=== PATIENT | male | born 1945 | race Caucasian/White ===

== ENCOUNTER → 2016-04-30 | Outpatient (CLI) | payer MEDICARE ==
[2016-04-30 15:28] LABS: PROTHROMBIN TIME 29.1 SEC (11.4-15.4)
== END ==
LOC: OD 14:56
PROVIDERS: ATTEND Internal Medicine Advanced Heart Failure and Transplant Cardiology
DX: I50.9 Heart failure, unspecified (principal); Z79.01 Long term (current) use of anticoagulants; Z95.811 Presence of heart assist device
CPT/HCPCS: 36415; 85610

== ENCOUNTER → 2016-05-14 | Outpatient (CLI) | payer MEDICARE ==
[2016-05-14 12:48] LABS: PROTHROMBIN TIME 33.6 SEC (11.4-15.4)
== END ==
LOC: OD 12:09
PROVIDERS: ATTEND Internal Medicine Advanced Heart Failure and Transplant Cardiology
DX: I50.9 Heart failure, unspecified (principal); Z79.01 Long term (current) use of anticoagulants; Z95.811 Presence of heart assist device
CPT/HCPCS: 36415; 85610

== ENCOUNTER → 2016-06-15 | Outpatient (CLI) | payer MEDICARE ==
[2016-06-15 13:19] LABS: PROTHROMBIN TIME 22.2 SEC (11.4-15.4)
== END ==
LOC: OD 12:28
PROVIDERS: ATTEND Internal Medicine Advanced Heart Failure and Transplant Cardiology
DX: I50.9 Heart failure, unspecified (principal); Z79.01 Long term (current) use of anticoagulants; Z95.811 Presence of heart assist device
CPT/HCPCS: 36415; 85610

== ENCOUNTER → 2016-06-22 | Outpatient (CLI) | payer MEDICARE ==
[2016-06-22 13:08] LABS: PROTHROMBIN TIME 27.5 SEC (11.4-15.4)
== END ==
LOC: OD 12:17
PROVIDERS: ATTEND Internal Medicine Advanced Heart Failure and Transplant Cardiology
DX: I50.9 Heart failure, unspecified (principal); Z79.01 Long term (current) use of anticoagulants; Z95.811 Presence of heart assist device
CPT/HCPCS: 36415; 85610

== ENCOUNTER → 2016-07-15 | Outpatient (CLI) | payer MEDICARE ==
[2016-07-15 15:20] LABS: PROTHROMBIN TIME 22.3 SEC (11.4-15.4)
== END ==
LOC: OD 14:02
PROVIDERS: ATTEND Internal Medicine Advanced Heart Failure and Transplant Cardiology
DX: I50.9 Heart failure, unspecified (principal); Z79.01 Long term (current) use of anticoagulants; Z95.811 Presence of heart assist device
CPT/HCPCS: 36415; 85610

== ENCOUNTER → 2016-08-14 | Outpatient (CLI) | payer MEDICARE ==
[2016-08-14 10:39] LABS: HEMATOCRIT 43.5 % (37.9-51.0); HGB HCT DIFFERENCE 1.5; MEAN CORPUSCULAR HEMOGLOBIN 31.2 pg (27.0-33.4); MEAN CORPUSCULAR HGB CONC 34.5 g/dL (32.0-36.0); MEAN CORPUSCULAR VOLUME 90 fl (80-97); RED BLOOD COUNT 4.82 10^6/uL (4.35-5.55); RED CELL DISTRIBUTION WIDTH 14.8 % (11.5-14.0); WHITE BLOOD COUNT 5.6 10^3/uL (4.0-10.5)
[2016-08-14 10:40] LABS: PROTHROMBIN TIME 13.9 SEC (11.4-15.4)
[2016-08-14 10:51] LABS: ANION GAP 13 (5-19); BLOOD UREA NITROGEN 26 mg/dL (7-20); CALCIUM 9.6 mg/dL (8.4-10.2); CARBON DIOXIDE 27 mmol/L (22-30); CHLORIDE 102 mmol/L (98-107); CREATININE RESULT 1.07 mg/dL (0.52-1.25); GLUCOSE 159 mg/dL (75-110); POTASSIUM 3.7 mmol/L (3.6-5.0); SODIUM 141.5 mmol/L (137-145)
== END ==
LOC: OD 09:35
PROVIDERS: ATTEND Internal Medicine Advanced Heart Failure and Transplant Cardiology
DX: I50.9 Heart failure, unspecified (principal); Z79.01 Long term (current) use of anticoagulants; Z95.811 Presence of heart assist device
CPT/HCPCS: 36415; 80048; 85027; 85610

== ENCOUNTER → 2016-08-19 | Outpatient (CLI) | payer MEDICARE ==
[2016-08-19 12:17] LABS: PROTHROMBIN TIME 19.8 SEC (11.4-15.4)
== END ==
LOC: OD 11:23
PROVIDERS: ATTEND Internal Medicine Advanced Heart Failure and Transplant Cardiology
DX: I50.9 Heart failure, unspecified (principal); Z79.01 Long term (current) use of anticoagulants; Z95.811 Presence of heart assist device
CPT/HCPCS: 36415; 85610

== ENCOUNTER → 2016-08-27 | Outpatient (CLI) | payer MEDICARE ==
[2016-08-27 11:41] LABS: PROTHROMBIN TIME 23.5 SEC (11.4-15.4)
[2016-08-27 11:49] LABS: ANION GAP 14 (5-19); BLOOD UREA NITROGEN 18 mg/dL (7-20); CALCIUM 9.5 mg/dL (8.4-10.2); CARBON DIOXIDE 26 mmol/L (22-30); CHLORIDE 103 mmol/L (98-107); GLUCOSE 138 mg/dL (75-110); POTASSIUM 3.6 mmol/L (3.6-5.0); SODIUM 142.5 mmol/L (137-145)
== END ==
LOC: OD 11:00
PROVIDERS: ATTEND Internal Medicine Advanced Heart Failure and Transplant Cardiology
DX: I50.9 Heart failure, unspecified (principal); Z79.01 Long term (current) use of anticoagulants; Z95.811 Presence of heart assist device
CPT/HCPCS: 36415; 80048; 85610

== ENCOUNTER → 2016-09-30 | Outpatient (CLI) | payer MEDICARE ==
[2016-09-30 13:04] LABS: PROTHROMBIN TIME 48.2 SEC (11.4-15.4)
[2016-09-30 13:13] LABS: ALANINE AMINOTRANSFERASE 29 U/L (21-72); ALBUMIN 3.8 g/dL (3.5-5.0); ALKALINE PHOSPHATASE 72 U/L (38-126); ANION GAP 10 (5-19); ASPARTATE AMINO TRANSFERASE 31 U/L (17-59); BILIRUBIN,DIRECT 0.4 mg/dL (0.0-0.4); BILIRUBIN,TOTAL 0.8 mg/dL (0.2-1.3); BLOOD UREA NITROGEN 24 mg/dL (7-20); CALCIUM 9.7 mg/dL (8.4-10.2); CARBON DIOXIDE 27 mmol/L (22-30); CHLORIDE 104 mmol/L (98-107); CREATININE RESULT 1.03 mg/dL (0.52-1.25); GLUCOSE 104 mg/dL (75-110); LDH 692 U/L (313-618); POTASSIUM 3.6 mmol/L (3.6-5.0); SODIUM 140.8 mmol/L (137-145); TOTAL PROTEIN 6.8 g/dL (6.3-8.2)
== END ==
LOC: OD 12:27
PROVIDERS: ATTEND Internal Medicine Advanced Heart Failure and Transplant Cardiology
DX: I50.9 Heart failure, unspecified (principal); Z79.01 Long term (current) use of anticoagulants; Z95.811 Presence of heart assist device
CPT/HCPCS: 36415; 80053; 83615; 85610

== ENCOUNTER → 2016-10-05 | Outpatient (CLI) | payer MEDICARE ==
[2016-10-05 12:20] LABS: HEMATOCRIT 40.8 % (37.9-51.0); HEMOGLOBIN 13.5 g/dL (13.5-17.0); HGB HCT DIFFERENCE -0.3; MEAN CORPUSCULAR HEMOGLOBIN 30.2 pg (27.0-33.4); MEAN CORPUSCULAR VOLUME 92 fl (80-97); RED BLOOD COUNT 4.47 10^6/uL (4.35-5.55); WHITE BLOOD COUNT 6.1 10^3/uL (4.0-10.5)
[2016-10-05 12:25] LABS: PROTHROMBIN TIME 29.3 SEC (11.4-15.4)
== END ==
LOC: OD 11:30
PROVIDERS: ATTEND Internal Medicine Advanced Heart Failure and Transplant Cardiology
DX: I50.9 Heart failure, unspecified (principal); Z79.01 Long term (current) use of anticoagulants; Z95.811 Presence of heart assist device
CPT/HCPCS: 36415; 85027; 85610

== ENCOUNTER → 2016-10-06 | Outpatient (CLI) | payer MEDICARE ==
--- NOTE | 2016-10-07 09:19 | RADIOLOGY REPORT (SQ) ---
EXAM DESCRIPTION: CT LT LOWER EXTREMITY WITHOUT COMPLETED DATE/TIME: 10/06/2016 3:17 pm REASON FOR STUDY: L FOOT PAIN M79.672 PAIN IN LEFT FOOT COMPARISON: None. TECHNIQUE: Axial imaging performed through the left foot with reformatted coronal and sagittal imagi ng windowed for bone and soft tissues. Images saved to PACS. 3D IMAGING: Were 3D images as MIP, SSD, or volume rendering performed at the work station? Yes All CT scanners at this facility use dose modulation, iterative reconstruction, and/or weight based d osing when appropriate to reduce radiation dose to as low as reasonably achievable (ALARA). [facility]: Dose Right [facility]: CareDose [facility]: Dose Right [facility]: Teradose 4D [facility]: [employer] LIMITATIONS: None. RADIATION DOSE: Up-to-date CT equipment and radiation dose reduction techniques were employed. CTDIv ol: 4.6 mGy. DLP: 125 mGy-cm. mGy. FINDINGS: SOFT TISSUES: Limited assessment with CT. Generalized subcutaneous edema about the ankle extending out over the dorsal foot. No evidence of foreign body or drainable collection, however. BONES: Prominent well corticated accessory navicular. No overt talar dome lesion. No overt fracture . No subluxation or dislocation. No evidence of ankylosis. No aggressive erosions or cysts or bulk y osteophytes. MINERALIZATION: Mild osteopenia. OTHER: No other significant finding. IMPRESSION: Soft tissue swelling. Otherwise, fairly unremarkable CT of the left foot, findings as a jim. TECHNICAL DOCUMENTATION: JOB ID: [id number] Quality ID # [id number]: Final reports with documentation of one or more dose reduction techniques (e.g., Au tomated exposure control, adjustment of the mA and/or kV according to patient size, use of iterative reconstruction technique) 2010 [employer]- All Rights Reserved
== END ==
LOC: RAD 15:01
PROVIDERS: ATTEND Physician Assistant
DX: M79.672 Pain in left foot (principal)

== ENCOUNTER → 2016-10-13 | Outpatient (CLI) | payer MEDICARE | LOC: OD 11:25 | PROVIDERS: ATTEND Internal Medicine Advanced Heart Failure and Transplant Cardiology | DX: I50.9 Heart failure, unspecified (principal); Z79.01 Long term (current) use of anticoagulants; Z95.811 Presence of heart assist device | CPT/HCPCS: 36415; 85610 ==

== ENCOUNTER → 2016-10-28 | Outpatient (CLI) | payer MEDICARE ==
[2016-10-28 13:22] LABS: PROTHROMBIN TIME 16.9 SEC (11.4-15.4)
== END ==
LOC: OD 12:23
PROVIDERS: ATTEND Internal Medicine Advanced Heart Failure and Transplant Cardiology
DX: I50.9 Heart failure, unspecified (principal); Z79.01 Long term (current) use of anticoagulants; Z95.811 Presence of heart assist device
CPT/HCPCS: 36415; 85610

== ENCOUNTER → 2016-11-04 | Outpatient (CLI) | payer MEDICARE ==
[2016-11-04 12:22] LABS: PROTHROMBIN TIME 21.4 SEC (11.4-15.4)
[2016-11-04 12:25] LABS: HEMOGLOBIN 13.7 g/dL (13.5-17.0); HGB HCT DIFFERENCE -0.9; MEAN CORPUSCULAR HGB CONC 32.6 g/dL (32.0-36.0); MEAN CORPUSCULAR VOLUME 92 fl (80-97); RED BLOOD COUNT 4.57 10^6/uL (4.35-5.55); RED CELL DISTRIBUTION WIDTH 15.1 % (11.5-14.0); WHITE BLOOD COUNT 6.2 10^3/uL (4.0-10.5)
[2016-11-04 12:40] LABS: ANION GAP 9 (5-19); BLOOD UREA NITROGEN 25 mg/dL (7-20); CALCIUM 9.2 mg/dL (8.4-10.2); CARBON DIOXIDE 25 mmol/L (22-30); CHLORIDE 105 mmol/L (98-107); CREATININE RESULT 1.03 mg/dL (0.52-1.25); GLUCOSE 138 mg/dL (75-110); POTASSIUM 4.5 mmol/L (3.6-5.0); SODIUM 139.4 mmol/L (137-145)
== END ==
LOC: OD 11:28
PROVIDERS: ATTEND Internal Medicine Advanced Heart Failure and Transplant Cardiology
DX: I50.9 Heart failure, unspecified (principal); Z79.01 Long term (current) use of anticoagulants; Z95.811 Presence of heart assist device
CPT/HCPCS: 36415; 80048; 85027; 85610

== ENCOUNTER → 2016-11-25 | Outpatient (CLI) | payer MEDICARE ==
[2016-11-25 12:16] LABS: PROTHROMBIN TIME 28.4 SEC (11.4-15.4)
[2016-11-25 12:33] LABS: ANION GAP 15 (5-19); BLOOD UREA NITROGEN 25 mg/dL (7-20); CALCIUM 9.4 mg/dL (8.4-10.2); CARBON DIOXIDE 22 mmol/L (22-30); CHLORIDE 102 mmol/L (98-107); CREATININE RESULT 0.93 mg/dL (0.52-1.25); GLUCOSE 149 mg/dL (75-110); POTASSIUM 4.2 mmol/L (3.6-5.0); SODIUM 138.8 mmol/L (137-145)
== END ==
LOC: OD 11:28
PROVIDERS: ATTEND Internal Medicine Advanced Heart Failure and Transplant Cardiology
DX: I50.9 Heart failure, unspecified (principal); Z79.01 Long term (current) use of anticoagulants; Z95.811 Presence of heart assist device
CPT/HCPCS: 36415; 80048; 85610

== ENCOUNTER → 2016-12-30 | Outpatient (CLI) | payer MEDICARE ==
[2016-12-30 11:39] LABS: PROTHROMBIN TIME 24.4 SEC (11.4-15.4)
== END ==
LOC: OD 11:16
PROVIDERS: ATTEND Internal Medicine Advanced Heart Failure and Transplant Cardiology
DX: I50.9 Heart failure, unspecified (principal); Z79.01 Long term (current) use of anticoagulants; Z95.811 Presence of heart assist device
CPT/HCPCS: 36415; 85610

== ENCOUNTER → 2017-01-13 | Outpatient (CLI) | payer MEDICARE ==
[2017-01-13 10:37] LABS: PROTHROMBIN TIME 21.8 SEC (11.4-15.4)
[2017-01-13 10:44] LABS: ANION GAP 12 (5-19); BLOOD UREA NITROGEN 18 mg/dL (7-20); CALCIUM 9.3 mg/dL (8.4-10.2); CARBON DIOXIDE 26 mmol/L (22-30); CHLORIDE 102 mmol/L (98-107); CREATININE RESULT 0.94 mg/dL (0.52-1.25); GLUCOSE 170 mg/dL (75-110); POTASSIUM 3.4 mmol/L (3.6-5.0); SODIUM 140.4 mmol/L (137-145)
== END ==
LOC: OD 09:46
PROVIDERS: ATTEND Internal Medicine Advanced Heart Failure and Transplant Cardiology
DX: I50.9 Heart failure, unspecified (principal); Z79.01 Long term (current) use of anticoagulants; Z95.811 Presence of heart assist device
CPT/HCPCS: 36415; 80048; 85610

== ENCOUNTER 2017-01-27 10:53 | Emergency (ER) | payer MEDICARE ==
[2017-01-27] MEDS ORDERED: NORMAL SALINE 1000 ML 500 ML IV PRN (11:08)
[2017-01-27] MEDS ORDERED: ONDANSETRON HCL INJ/PF 4 MG/2 ML SDV IV ONE (11:08)
[2017-01-27] MEDS ORDERED: HYDROMORPHONE HCL INJ/PF 2 MG/ML AMPULE IV ONE (11:08)
--- NOTE | 2017-01-27 11:09 | ER Document Report ---
ED Medical Screen (RME) - General Chief Complaint: Flank Pain Stated Complaint: FLANK PAIN Time Seen by Provider: 01/27/17 11:08 Mode of Arrival: Wheelchair Information source: Patient TRAVEL OUTSIDE OF THE [place] IN LAST 30 DAYS: No - HPI Patient complains to provider of: Left flank pain Notes: 01/27/17 11:09 Patient is a 71-year-old male with multiple medical problems including previous kidney stones, currently has LVAD in place, presenting to the emergency room complaining of left-sided flank pain that started yesterday afternoon, is similar to previous kidney stones in the past, he has required procedures to have kidney stones removed in the past - Related Data Allergies/Adverse Reactions: prazosin [Prazosin] Adverse Reaction (Verified 01/27/17 10:59) Heart Palpitations Past Medical History - Past Medical History Cardiac Medical History: Reports: Hx Atrial Fibrillation, Hx Congestive Heart Failure, Hx Coronary Artery Disease, Hx Heart Attack - 01/2012, Hx Hypercholesterolemia, Hx Hypertension Pulmonary Medical History: Reports: Hx Pneumonia Denies: Hx Tuberculosis Renal/ Medical History: Reports: Hx Kidney Stones. Denies: Hx Peritoneal Dialysis Musculoskeltal Medical History: Reports Hx Arthritis Psychiatric Medical History: Denies: Hx Depression Past Surgical History: Reports: Hx Cardiac Catheterization, Hx Cardiac Surgery, Hx Coronary Stent, Hx Internal Defibrillator, Hx Orthopedic Surgery - bilateral hips, left knee, Hx Pacemaker - 2004, Other - LVAD - Immunizations Hx Diphtheria, Pertussis, Tetanus Vaccination: Yes Physical Exam - Vital signs Vitals: Temp Pulse Resp BP Pulse Ox 97.9 F 97 22 H 145/109 H 98 01/27/17 10:59 01/27/17 10:59 01/27/17 10:59 01/27/17 10:59 01/27/17 10:59 Course - Vital Signs Vital signs: Temp Pulse Resp BP Pulse Ox 97.9 F 97 22 H 145/109 H 98 01/27/17 10:59 01/27/17 10:59 01/27/17 10:59 01/27/17 10:59 01/27/17 10:59
[2017-01-27 11:58] LABS: ABSOLUTE LYMPHOCYTES (AUTO) 0.8 10^3/uL (0.5-4.7); ABSOLUTE MONOCYTES (AUTO) 0.6 10^3/uL (0.1-1.4); ABSOLUTE NEUT (AUTO) 6.5 10^3/uL (1.7-8.2); BASOPHILS % (AUTO) 0.5 % (0-2); EOSINOPHILS % (AUTO) 0.5 % (0-6); HEMATOCRIT 44.3 % (37.9-51.0); HEMOGLOBIN 15.2 g/dL (13.5-17.0); HGB HCT DIFFERENCE 1.3; LYMPHOCYTES % (AUTO) 10.5 % (13-45); MEAN CORPUSCULAR HEMOGLOBIN 31.4 pg (27.0-33.4); MEAN CORPUSCULAR HGB CONC 34.4 g/dL (32.0-36.0); MEAN CORPUSCULAR VOLUME 91 fl (80-97); RED BLOOD COUNT 4.86 10^6/uL (4.35-5.55); RED CELL DISTRIBUTION WIDTH 15.6 % (11.5-14.0); SEGMENTED NEUTROPHILS % (AUTO) 81.5 % (42-78)
[2017-01-27 12:23] LABS: APPEARANCE,URINE CLEAR; BILIRUBIN,URINE NEGATIVE (NEGATIVE); GLUCOSE, URINE NEGATIVE (NEGATIVE); KETONES,URINE NEGATIVE (NEGATIVE); LEUKOCYTE ESTERASE,URINE NEGATIVE (NEGATIVE); NITRITE,URINE NEGATIVE (NEGATIVE); PROTEIN,URINE >=500 mg/dL (NEGATIVE); URINE SPECIFIC GRAVITY 1.026
[2017-01-27 12:24] LABS: ALANINE AMINOTRANSFERASE 37 U/L (21-72); ALBUMIN 4.2 g/dL (3.5-5.0); ALKALINE PHOSPHATASE 69 U/L (38-126); ANION GAP 12 (5-19); ASPARTATE AMINO TRANSFERASE 40 U/L (17-59); BILIRUBIN,DIRECT 0.5 mg/dL (0.0-0.4); BILIRUBIN,TOTAL 1.3 mg/dL (0.2-1.3); BLOOD UREA NITROGEN 18 mg/dL (7-20); CALCIUM 9.9 mg/dL (8.4-10.2); CARBON DIOXIDE 26 mmol/L (22-30); CHLORIDE 100 mmol/L (98-107); CREATININE RESULT 1.02 mg/dL (0.52-1.25); GLUCOSE 142 mg/dL (75-110); LIPASE 118.7 U/L (23-300); POTASSIUM 3.4 mmol/L (3.6-5.0); SODIUM 137.6 mmol/L (137-145); TOTAL PROTEIN 7.1 g/dL (6.3-8.2)
--- NOTE | 2017-01-27 12:33 | ER Document Report ---
ED General - General Chief Complaint: Flank Pain Stated Complaint: FLANK PAIN Time Seen by Provider: 01/27/17 11:08 Mode of Arrival: Wheelchair Notes: 71-year-old male with history of kidney stones presented with left flank pain since yesterday, constant, intermittently associated with vomiting, similar to prior kidney stones. No fever no dysuria no hematuria. Patient has constant shortness of breath unchanged from prior and has an LVAD in place but is not currently on a transplant list. Denies chest pain. TRAVEL OUTSIDE OF THE [place] IN LAST 30 DAYS: No - Related Data Allergies/Adverse Reactions: prazosin [Prazosin] Adverse Reaction (Verified 01/27/17 10:59) Heart Palpitations Past Medical History - General Information source: Patient - Social History Smoking Status: Never Smoker Chew tobacco use (# tins/day): No Frequency of alcohol use: Social Drug Abuse: None Family History: Reviewed & Not Pertinent - Past Medical History Cardiac Medical History: Reports: Hx Atrial Fibrillation, Hx Congestive Heart Failure, Hx Coronary Artery Disease, Hx Heart Attack - 01/2012, Hx Hypercholesterolemia, Hx Hypertension Pulmonary Medical History: Reports: Hx Pneumonia Denies: Hx Tuberculosis Renal/ Medical History: Reports: Hx Kidney Stones. Denies: Hx Peritoneal Dialysis Musculoskeltal Medical History: Reports Hx Arthritis Psychiatric Medical History: Denies: Hx Depression Past Surgical History: Reports: Hx Cardiac Catheterization, Hx Cardiac Surgery, Hx Coronary Stent, Hx Internal Defibrillator, Hx Orthopedic Surgery - bilateral hips, left knee, Hx Pacemaker - 2004, Other - LVAD - Immunizations Hx Diphtheria, Pertussis, Tetanus Vaccination: Yes Hx Pneumococcal Vaccination: 01/22/12 Review of Systems - Review of Systems Notes: REVIEW OF SYSTEMS GEN: Denies fever, chills, weight loss ENT: Denies sore throat, nasal discharge, ear pain EYES: Denies blurry vision, eye pain, discharge CV: Denies chest pain, palpitations, edema RESP: Denies cough, positive shortness of breath, denies wheezing GI: Denies abdominal pain, nausea, vomiting, diarrhea MSK: D left back flank pain, SKIN: Denies rash, skin lesions LYMPH: Denies swollen glands/lymph nodes NEURO: Denies headache, focal weakness or numbness, dizziness PSYCH: Denies depression, suicidal or homicidal ideation PHYSICAL EXAMINATION General: No acute distress, well-nourished Head: Atraumatic, normocephalic ENT: Mouth normal, oropharynx moist, no exudates or tonsillar enlargement Eyes: Conjunctiva normal, pupils equal, lids normal Neck: No JVD, supple, no guarding CVS: Intermittent pulse secondary to LVAD, fluttering sound over precordium Resp: No resp distress, equal and normal breath sounds bilaterally GI: Nondistended, soft, no tenderness to palpation, no rebound or guarding Ext: No deformities, chronic discoloration and edema, bilateral lower extremities, normal range of motion in upper and lower ext Back: N left CVA tenderness Skin: No rash, warm Lymphatic: No lymphadeopathy noted Neuro: Awake, alert. Face symmetric. GCS 15. Physical Exam - Vital signs Vitals: Temp Pulse Resp BP Pulse Ox 97.9 F 97 22 H 145/109 H 98 01/27/17 10:59 01/27/17 10:59 01/27/17 10:59 01/27/17 10:59 01/27/17 10:59 Course - Re-evaluation Re-evalutation: 01/27/17 12:33 Patient with heart failure and LVAD presents with recurrent left flank pain similar to prior kidney stones. Normal vital signs, expected exam given LVAD. Mild left CVA tenderness. Urinalysis and labs are pending. Patient states that fentanyl and morphine to work for him so Dilaudid has been ordered by triage provider. He states he has had an ultrasound but I do not see that has been done so we will get a noncontrast CT to assess position and size of stone. Inferiorly, aortic pathology is on the differential here however given the similar to prior stones I will start with a Noncon scan. 01/27/17 14:03 Reassess patient at 2 PM. He appears more comfortable but states that the Dilaudid did not work. His laboratory testing is unremarkable and his CAT scan does not show signs of nephrolithiasis. On further history, his now says that this all began Wednesday with vomiting after he ate chicken soup which was out all night. He continued to vomit throughout Wednesday and then dry heaves Wednesday and Wednesday. He is having frequent runny bowel movements as well but that is now subsided. He specifically denies chest pain. Given this, he may have a poor muscle or spasm but I think that the story matches well with with food poisoning and associated muscle strain given his tenderness. I will give him some Flexeril and Zofran he will be discharged with the same and he was warned to follow-up with Dr. Miramontes as soon as possible or with the ED if anything changes or gets any worse in any way. I have discussed with the patient there likely diagnosis, aftercare plan, follow-up plans and my usual and customary return precautions. They verbalized understanding of this. - Vital Signs Vital signs: Temp Pulse Resp BP Pulse Ox 97.9 F 97 22 H 145/109 H 98 01/27/17 10:59 01/27/17 10:59 01/27/17 10:59 01/27/17 10:59 01/27/17 10:59 - Laboratory Result Diagrams: 01/27/17 11:35 01/27/17 11:35 Laboratory results interpreted by me: 01/27/17 01/27/17 01/27/17 11:21 11:35 11:35 RDW 15.6 H Seg Neutrophils % 81.5 H Lymphocytes % 10.5 L Potassium 3.4 L Glucose 142 H Direct Bilirubin 0.5 H Urine Protein >=500 H Urine Blood SMALL H Urine Urobilinogen 2.0 H - Diagnostic Test Radiology reviewed: Reports reviewed Discharge - Discharge Clinical Impression: Back pain Qualifiers: Back pain location: low back pain Chronicity: acute Back pain laterality: left Sciatica presence: without sciatica Qualified Code(s): M54.5 - Low back pain Condition: Good Disposition: HOME, SELF-CARE Instructions: Low Back Pain ([facility]) Additional Instructions: As we discussed we did not find evidence of a kidney stone. It may be that you have passed a stone or that you have some back spasm because of the vomiting. We did not find any acute issues in her abdomen either. Please follow-up with your regular doctor within a few days, ideally by Wednesday. Please return to the ER before that if the meds are not working or get worse in any way. Prescriptions: Cyclobenzaprine HCl [Flexeril 10 mg Tablet] 10 mg PO TIDP PRN #15 tab PRN Reason: Ondansetron HCl [Zofran 4 mg Tablet] 1 - 2 tab PO Q4H PRN #10 tablet PRN Reason: Referrals: MARIAH MIRAMONTES MD [Primary Care Provider] - Follow up as needed
--- NOTE | 2017-01-27 12:37 | RADIOLOGY REPORT (SQ) ---
EXAM DESCRIPTION: U/S RETROPERITON LTD COMPLETED DATE/TIME: 01/27/2017 12:24 pm REASON FOR STUDY: left flank pain COMPARISON: CT abdomen pelvis 06/17/2010 KUB 07/27/2013 TECHNIQUE: Dynamic and static grayscale images acquired of the kidneys and bladder and recorded on P ACS. Additional selected color Doppler and spectral images recorded. LIMITATIONS: Limited acoustic window FINDINGS: RIGHT KIDNEY: Normal size, 11.2 cm in length. Normal echogenicity. No solid or suspic ious masses. No hydronephrosis. No calcifications. LEFT KIDNEY: Normal size, 11.8 cm in length. Normal echogenicity. No solid or suspicious masses. No hydronephrosis. No calcifications. BLADDER: Patient emptied the bladder prior to the exam. Nondiagnostic imaging of the urinary bladder . OTHER FINDINGS: No other significant finding. IMPRESSION: No hydronephrosis. No gross intrarenal stones. TECHNICAL DOCUMENTATION: JOB ID: [id number] [employer]- All Rights Reserved
--- NOTE | 2017-01-27 13:23 | RADIOLOGY REPORT (SQ) ---
EXAM DESCRIPTION: CT ABD/PELVIS NO ORAL OR IV COMPLETED DATE/TIME: 01/27/2017 1:04 pm REASON FOR STUDY: stone L COMPARISON: 2010. TECHNIQUE: CT scan of the abdomen and pelvis performed without intravenous or oral contrast. Images reviewed with lung, soft tissue, and bone windows. Reconstructed coronal and sagittal MPR images revi ewed. All images stored on PACS. All CT scanners at this facility use dose modulation, iterative reconstruction, and/or weight based d osing when appropriate to reduce radiation dose to as low as reasonably achievable (ALARA). [facility]: Dose Right [facility]: CareDose [facility]: Dose Right [facility]: Teradose 4D [facility]: [employer] RADIATION DOSE: Up-to-date CT equipment and radiation dose reduction techniques were employed. CTDIv ol: 18.6 mGy. DLP: 989 mGy-cm.mGy. LIMITATIONS: Artifact related to bilateral hip replacements obscures the pelvis. This precludes marcela luation of the inferior bladder and adjacent tissues. Streak artifact through the lower chest and up per abdomen is related to ventricular assist device. FINDINGS: LOWER CHEST: Cardiac enlargement. Clear lung bases. Left ventricular assist device in pl danna. Distal aspect of pacing wires also noted. No pericardial effusion. NON-CONTRASTED LIVER, SPLEEN, ADRENALS: No gross lesions in the liver or spleen. No evidence of adre nal mass. PANCREAS: Grossly normal. Mild limiting artifact. GALLBLADDER: No identified stones by CT criteria. No inflammatory changes to suggest cholecystitis. RIGHT KIDNEY AND URETER: No solid masses. Minimal punctate lower pole nonobstructing stone suggested . No hydronephrosis or hydroureter. LEFT KIDNEY AND URETER: No solid masses. No significant calcification. No hydronephrosis or hydrouret er. AORTA AND RETROPERITONEUM: No aneurysm. No retroperitoneal masses or adenopathy. BOWEL AND PERITONEAL CAVITY: Bowel loops look generally unremarkable. No distention or inflammatory process. There appears to be some free fluid in the pelvis. No ascites otherwise demonstrated. APPENDIX: Normal. PELVIS, BLADDER, AND ABDOMINAL WALL:Limited evaluation due to artifact described above. Mild to mode rate free fluid, somewhat unusual in a male. No abdominal wall mass or bowel containing hernia. BONES: Osteopenic. OTHER: No other significant finding. IMPRESSION: 1. No evidence of urinary obstruction or significant stones. Considerable limiting art ifact through the pelvis, however. See above. 2. Nonspecific free fluid in the pelvis. Perhaps thi s is related to recent GI illness, pelvic fluid is usually not physiologic in a male. TECHNICAL DOCUMENTATION: JOB ID: [id number] Quality ID # [id number]: Final reports with documentation of one or more dose reduction techniques (e.g., Au tomated exposure control, adjustment of the mA and/or kV according to patient size, use of iterative reconstruction technique) 2010 [employer]- All Rights Reserved
[2017-01-27] MEDS ORDERED: CYCLOBENZAPRINE HCL 10 MG TABLET PO ONE (14:02)
[2017-01-27] MEDS ORDERED: ONDANSETRON HCL 8 MG TABLET PO ONE (14:02)
[2017-01-27 15:11] VITALS: BP 152/115
== END 2017-01-27 15:11 | disposition home or self-care (01) ==
LOC: ER 10:53
DX: M54.5 Low back pain (principal); R10.9 Unspecified abdominal pain; R11.10 Vomiting, unspecified; R06.02 Shortness of breath; I11.0 Hypertensive heart disease with heart failure; I50.9 Heart failure, unspecified; I48.91 Unspecified atrial fibrillation; I25.10 Atherosclerotic heart disease of native coronary artery without angina pectoris; I25.2 Old myocardial infarction; Z87.442 Personal history of urinary calculi; Z95.811 Presence of heart assist device; Z95.5 Presence of coronary angioplasty implant and graft; Z95.810 Presence of automatic (implantable) cardiac defibrillator
CPT/HCPCS: 99284; 96361; 96374; 96375; 36415; 87086; 83690; 85025; 80053; 81001; 76775; 74176; A9270 ×2; J1170; J2405; J7030; S0119

== ENCOUNTER → 2017-02-02 | Outpatient (CLI) | payer MEDICARE ==
[2017-02-02 13:35] LABS: PROTHROMBIN TIME 16.3 SEC (11.4-15.4)
== END ==
LOC: OD 12:48
PROVIDERS: ATTEND Internal Medicine Advanced Heart Failure and Transplant Cardiology
DX: I50.9 Heart failure, unspecified (principal); Z79.01 Long term (current) use of anticoagulants; Z95.811 Presence of heart assist device
CPT/HCPCS: 36415; 85610

== ENCOUNTER 2017-02-09 08:53 | Emergency (ER) | payer MEDICARE ==
--- NOTE | 2017-02-09 10:35 | RADIOLOGY REPORT (SQ) ---
EXAM DESCRIPTION: CHEST PA/LAT COMPLETED DATE/TIME: 02/09/2017 10:25 am REASON FOR STUDY: sob COMPARISON: Chest films 09/05/2013, 05/20/2014 EXAM PARAMETERS: NUMBER OF VIEWS: two views TECHNIQUE: Digital Frontal and Lateral radiographic views of the chest acquired. RADIATION DOSE: NA LIMITATIONS: none FINDINGS: LUNGS AND PLEURA: Chronic blunting left lateral costophrenic sulcus likely related to scar ring. No acute infiltrates. No pleural effusion. No pneumothorax. MEDIASTINUM AND HILAR STRUCTURES: No masses or contour abnormalities. HEART AND VASCULAR STRUCTURES: Moderate cardiomegaly with old sternotomy and left ventricular assist device. BONES: No acute findings. HARDWARE: Left-sided dual lead pacemaker. Left ventricular assist device OTHER: No other significant finding. IMPRESSION: No acute changes TECHNICAL DOCUMENTATION: JOB ID: [id number] [employer]- All Rights Reserved
[2017-02-09 10:45] LABS: ABSOLUTE EOSINOPHILS # (AUTO) 0.1 10^3/uL (0.0-0.6); ABSOLUTE LYMPHOCYTES (AUTO) 0.9 10^3/uL (0.5-4.7); ABSOLUTE MONOCYTES (AUTO) 0.5 10^3/uL (0.1-1.4); ABSOLUTE NEUT (AUTO) 7.1 10^3/uL (1.7-8.2); BASOPHILS % (AUTO) 0.4 % (0-2); HEMATOCRIT 42.9 % (37.9-51.0); HEMOGLOBIN 14.8 g/dL (13.5-17.0); HGB HCT DIFFERENCE 1.5; MEAN CORPUSCULAR HEMOGLOBIN 31.4 pg (27.0-33.4); MEAN CORPUSCULAR HGB CONC 34.5 g/dL (32.0-36.0); MEAN CORPUSCULAR VOLUME 91 fl (80-97); MONOCYTES % (AUTO) 6.1 % (3-13); RED BLOOD COUNT 4.72 10^6/uL (4.35-5.55); RED CELL DISTRIBUTION WIDTH 15.1 % (11.5-14.0); SEGMENTED NEUTROPHILS % (AUTO) 82.5 % (42-78); WHITE BLOOD COUNT 8.6 10^3/uL (4.0-10.5)
[2017-02-09 10:52] LABS: PROTHROMBIN TIME 21.4 SEC (11.4-15.4)
[2017-02-09 10:53] LABS: PARTIAL THROMBOPLASTIN TIME 50.6 SEC (23.5-35.8)
[2017-02-09 11:11] LABS: ALANINE AMINOTRANSFERASE 32 U/L (21-72); ALKALINE PHOSPHATASE 77 U/L (38-126); ANION GAP 11 (5-19); ASPARTATE AMINO TRANSFERASE 30 U/L (17-59); BILIRUBIN,DIRECT 0.5 mg/dL (0.0-0.4); BILIRUBIN,TOTAL 1.2 mg/dL (0.2-1.3); BLOOD UREA NITROGEN 17 mg/dL (7-20); CALCIUM 9.5 mg/dL (8.4-10.2); CARBON DIOXIDE 29 mmol/L (22-30); CHLORIDE 103 mmol/L (98-107); CREATININE RESULT 1.02 mg/dL (0.52-1.25); GLUCOSE 123 mg/dL (75-110); LIPASE 92.6 U/L (23-300); POTASSIUM 3.8 mmol/L (3.6-5.0); SODIUM 142.5 mmol/L (137-145); TOTAL PROTEIN 6.9 g/dL (6.3-8.2)
[2017-02-09 11:16] VITALS: BP 157/110
--- NOTE | 2017-02-09 11:35 | ER Document Report ---
ED General - General Chief Complaint: Nose Bleed Stated Complaint: NOSE BLEED Time Seen by Provider: 02/09/17 09:42 TRAVEL OUTSIDE OF THE [place] IN LAST 30 DAYS: No - HPI Patient complains to provider of: Nosebleed shortness of breath Notes: Patient coming in with a history of LVAD placement patient's initial complaint was nosebleed however upon my initial evaluation patient's nosebleed has stopped. Upon evaluating patient and leaving the room the notified me patient also has been having shortness of breath ongoing for the last week and also like this to be evaluated as well.States that the LVAD coordinator has been managing diuretics states weight has been at 211 pounds which is what the patient weighs today. Patient otherwise does not voice to complain of dyspnea states that he otherwise feels fine at this time. - Related Data Allergies/Adverse Reactions: prazosin [Prazosin] Adverse Reaction (Verified 02/09/17 09:10) Heart Palpitations Past Medical History - Social History Smoking Status: Former Smoker Frequency of alcohol use: 1 beer daily Drug Abuse: None Family History: Reviewed & Not Pertinent - Past Medical History Cardiac Medical History: Reports: Hx Atrial Fibrillation, Hx Congestive Heart Failure, Hx Coronary Artery Disease, Hx Heart Attack - 01/2012, Hx Hypercholesterolemia, Hx Hypertension Pulmonary Medical History: Reports: Hx Pneumonia Denies: Hx Tuberculosis Renal/ Medical History: Reports: Hx Kidney Stones. Denies: Hx Peritoneal Dialysis Musculoskeltal Medical History: Reports Hx Arthritis Psychiatric Medical History: Denies: Hx Depression Past Surgical History: Reports: Hx Cardiac Catheterization, Hx Cardiac Surgery - LVAD, Hx Coronary Stent, Hx Genitourinary Surgery - prostate surgery, Hx Internal Defibrillator, Hx Orthopedic Surgery - bilateral hips, left knee, Hx Pacemaker - 2004, Other - LVAD - Immunizations Hx Diphtheria, Pertussis, Tetanus Vaccination: Yes Hx Pneumococcal Vaccination: 01/22/12 Review of Systems - Review of Systems Constitutional: No symptoms reported EENT: Other - Nosebleed Cardiovascular: No symptoms reported Respiratory: Short of breath Gastrointestinal: No symptoms reported Genitourinary: No symptoms reported Male Genitourinary: No symptoms reported Musculoskeletal: No symptoms reported Skin: No symptoms reported Hematologic/Lymphatic: No symptoms reported Neurological/Psychological: No symptoms reported -: Yes All other systems reviewed and negative Physical Exam - Vital signs Vitals: Resp 18 02/09/17 09:31 Interpretation: Normal - General General appearance: Appears well, Alert - HEENT Head: Normocephalic, Atraumatic Eyes: Normal Conjunctiva: Normal Cornea: Normal Pupils: PERRL Ears: Normal External canal: Normal Tympanic membrane: Normal Nasal: Other - Scarring blood clot in the anterior portion of the nose no active bleeding at this time this is in the left nare right nare unaffected. Right knee are normal. Pharynx: Normal Neck: Other - Slight JVD no hepatojugular reflux - Respiratory Respiratory status: No respiratory distress Chest status: Nontender Breath sounds: Normal Chest palpation: Normal - Cardiovascular Rhythm: Regular Heart sounds: Normal auscultation Murmur: No - Abdominal Inspection: Normal Distension: No distension Bowel sounds: Normal Tenderness: Nontender Organomegaly: No organomegaly - Back Back: Normal, Nontender - Extremities General upper extremity: Normal inspection, Nontender, Normal color, Normal ROM , Normal temperature General lower extremity: Normal inspection, Nontender, Normal color, Normal ROM , Normal temperature, Normal weight bearing. No: Judith's sign - Neurological Neuro grossly intact: Yes Cognition: Normal Orientation: AAOx4 Jessica Coma Scale Eye Opening: Spontaneous [place] Coma Scale Verbal: Oriented [place] Coma Scale Motor: Obeys Commands Jessica Coma Scale Total: 15 Speech: Normal Motor strength normal: LUE, RUE, LLE, RLE Sensory: Normal - Psychological Associated symptoms: Normal affect, Normal mood - Skin Skin Temperature: Warm Skin Moisture: Dry Skin Color: Normal Course - Re-evaluation Re-evalutation: 02/09/17 14:55 Discussed with her LVAD coordinator at [facility] reviewed results chest x- ray vital signs at this time agrees patient can be discharged home they will continue to manage Coumadin and diuretics.Discussed with family they agree with disposition educate the family about those the [facility]. - Vital Signs Vital signs: Temp Pulse Resp BP Pulse Ox 98.1 F 18 157/110 H 95 02/09/17 11:15 02/09/17 11:15 02/09/17 11:15 02/09/17 11:15 - Laboratory Result Diagrams: 02/09/17 10:30 02/09/17 10:30 Laboratory results interpreted by me: 02/09/17 02/09/17 02/09/17 10:30 10:30 10:30 RDW 15.1 H Seg Neutrophils % 82.5 H Lymphocytes % 10.0 L PT 21.4 H APTT 50.6 H Glucose 123 H Direct Bilirubin 0.5 H Discharge - Discharge Clinical Impression: Bleeding nose Dyspnea Qualifiers: Dyspnea type: unspecified Qualified Code(s): R06.00 - Dyspnea, unspecified Condition: Good Disposition: HOME, SELF-CARE Instructions: Nosebleed Instructions ([facility]) Additional Instructions: Follow-up with your primary care physician. Return to the ER if symptoms worsen. Please apply pressure for 30 minutes if your nose starts bleeding again. If this does not stop in 30 minutes please apply ice pack and then apply pressure again. Return to the ER for any significant bleeding or concerns. I discussed her results with Lamar your LVAD coordinator they will be in contact with you Referrals: MARIAH MIRAMONTES MD [Primary Care Provider] - Follow up as needed
== END 2017-02-09 11:46 | disposition home or self-care (01) ==
LOC: ER 08:53
DX: R04.0 Epistaxis (principal); I11.0 Hypertensive heart disease with heart failure; I50.9 Heart failure, unspecified; R06.02 Shortness of breath; I25.10 Atherosclerotic heart disease of native coronary artery without angina pectoris; I48.91 Unspecified atrial fibrillation; I25.2 Old myocardial infarction; Z95.811 Presence of heart assist device; Z79.899 Other long term (current) drug therapy; Z95.810 Presence of automatic (implantable) cardiac defibrillator; Z95.5 Presence of coronary angioplasty implant and graft; Z79.01 Long term (current) use of anticoagulants
CPT/HCPCS: 36415; 71020; 80053; 83690; 85025; 85610; 85730; 99283

== ENCOUNTER 2017-02-09 17:45 | Emergency (ER) | payer MEDICARE ==
--- NOTE | 2017-02-09 18:17 | ER Document Report ---
ED Medical Screen (RME) - General Chief Complaint: Nose Bleed Stated Complaint: NOSE BLEED Time Seen by Provider: 02/09/17 18:16 Notes: pt with LVAD started with nosebleed approx one hour ago. pt on coumadin. was seen here this am. TRAVEL OUTSIDE OF THE [place] IN LAST 30 DAYS: No - Related Data Allergies/Adverse Reactions: prazosin [Prazosin] Adverse Reaction (Verified 02/09/17 09:10) Heart Palpitations Past Medical History - Past Medical History Cardiac Medical History: Reports: Hx Atrial Fibrillation, Hx Congestive Heart Failure, Hx Coronary Artery Disease, Hx Heart Attack - 01/2012, Hx Hypercholesterolemia, Hx Hypertension Pulmonary Medical History: Reports: Hx Pneumonia Denies: Hx Tuberculosis Renal/ Medical History: Reports: Hx Kidney Stones. Denies: Hx Peritoneal Dialysis Musculoskeltal Medical History: Reports Hx Arthritis Psychiatric Medical History: Denies: Hx Depression Past Surgical History: Reports: Hx Cardiac Catheterization, Hx Cardiac Surgery - LVAD, Hx Coronary Stent, Hx Genitourinary Surgery - prostate surgery, Hx Internal Defibrillator, Hx Orthopedic Surgery - bilateral hips, left knee, Hx Pacemaker - 2004, Other - LVAD - Immunizations Hx Diphtheria, Pertussis, Tetanus Vaccination: Yes Physical Exam - Vital signs Vitals: BP Pulse Ox 122/97 H 98 02/09/17 17:51 02/09/17 17:51 Course - Vital Signs Vital signs: Temp Pulse Resp BP Pulse Ox 122/97 H 98 02/09/17 17:51 02/09/17 17:51
[2017-02-09] MEDS ORDERED: OXYMETAZOLINE HCL 0.05% NASAL SPRAY 15 ML BOTTLE ONE (18:21)
--- NOTE | 2017-02-09 18:44 | ER Document Report ---
ED ENT - General Chief Complaint: Nose Bleed Stated Complaint: NOSE BLEED Time Seen by Provider: 02/09/17 18:16 Mode of Arrival: Ambulatory Information source: Patient, Relative Notes: 71-year-old male presents emergency department with active epistaxis. He had nose bleeding earlier in the day and come to the emergency department at that time, but the bleeding had stopped when he was seen and he had no needed intervention. Blood tests were obtained because the patient has significant comorbidities. He has a left ventricular assist device in place. That has been there for 4 years. He is on Coumadin. His INR earlier today was therapeutic. Patient was discharged from the emergency department around 1130, but began having bleeding at approximately 1:30. The bleeding has been variable through the afternoon, but unable to be stopped. The patient and his have tried clamping the nose without benefit. No nasal sprays were used. Patient confirms blood is flowing into the posterior oropharynx as well. He denies any shortness of breath, chest pain, or weakness. TRAVEL OUTSIDE OF THE [place] IN LAST 30 DAYS: No - Related Data Allergies/Adverse Reactions: prazosin [Prazosin] Adverse Reaction (Verified 02/09/17 09:10) Heart Palpitations Past Medical History - Social History Smoking Status: Unknown if Ever Smoked Family History: Reviewed & Not Pertinent - Past Medical History Cardiac Medical History: Reports: Hx Atrial Fibrillation, Hx Congestive Heart Failure, Hx Coronary Artery Disease, Hx Heart Attack - 01/2012, Hx Hypercholesterolemia, Hx Hypertension Pulmonary Medical History: Reports: Hx Pneumonia Denies: Hx Tuberculosis Renal/ Medical History: Reports: Hx Kidney Stones. Denies: Hx Peritoneal Dialysis Musculoskeltal Medical History: Reports Hx Arthritis Psychiatric Medical History: Denies: Hx Depression Past Surgical History: Reports: Hx Cardiac Catheterization, Hx Cardiac Surgery - LVAD, Hx Coronary Stent, Hx Genitourinary Surgery - prostate surgery, Hx Internal Defibrillator, Hx Orthopedic Surgery - bilateral hips, left knee, Hx Pacemaker - 2004, Other - LVAD - Immunizations Hx Diphtheria, Pertussis, Tetanus Vaccination: Yes Hx Pneumococcal Vaccination: 01/22/12 Review of Systems - Review of Systems Notes: REVIEW OF SYSTEMS: CONSTITUTIONAL : Denies fever, chills, or sweats. Denies recent illness. EENT: Active epistaxis. See HPI CARDIOVASCULAR: Denies chest pain. Patient does have a left ventricular assist device in place. RESPIRATORY: Denies cough, cold, or chest congestion. Denies shortness of breath, difficulty breathing, or wheezing. GASTROINTESTINAL: Denies abdominal pain or distention. Denies nausea, vomiting , or diarrhea. GENITOURINARY: Denies difficulty urinating, painful urination, burning, frequency, blood in urine, or discharge. MUSCULOSKELETAL: Denies back or neck pain or stiffness. Denies joint pain or swelling. SKIN: Denies rash, lesions or sores. LYMPHATIC: Denies swollen, enlarged glands. NEUROLOGICAL: Denies confusion or altered mental status. Denies passing out or loss of consciousness. Denies dizziness or lightheadedness. Denies headache. ALL OTHER SYSTEMS REVIEWED AND NEGATIVE. Physical Exam - Vital signs Vitals: BP Pulse Ox 122/97 H 98 02/09/17 17:51 02/09/17 17:51 - Notes Notes: PHYSICAL EXAMINATION: GENERAL: Alert, communicative, no acute distress, but he does have active bleeding from his left naris. HEAD: Atraumatic, normocephalic. ENT: Active bleeding from left naris. He also has blood in his posterior oropharynx. Remainder of his HEENT exam is unremarkable.. NECK: Normal range of motion, supple without lymphadenopathy LUNGS: Breath sounds clear to auscultation bilaterally and equal. No wheezes rales or rhonchi. HEART: There is a mechanical sound consistent with a left ventricular assist device over the epigastric area. Over the left lower chest, I do believe I am hearing heart tones. Patient does have an intermittently palpable pulse in his wrist. ABDOMEN: Soft, nontender, nondistended abdomen. No guarding, no rebound. No masses appreciated. Musculoskeletal: Normal range of motion, no pitting or edema. No cyanosis. NEUROLOGICAL: Cranial nerves grossly intact. Normal speech, normal gait. Normal sensory, motor exams PSYCH: Normal mood, normal affect. SKIN: Warm, Dry, no rashes or lesions noted. Course - Re-evaluation Re-evalutation: 02/09/17 18:43 The patient has been treated with Afrin nasal spray. This fairly promptly diminish his bleeding. We have discussed packing the nares due to the repeat bleed he has had and this being his second visit to the emergency department, but given the fact that he has responded so well to the nasal spray, we will observe him in the emergency department and allowed to make patient to make his own decision regarding packing. Reevaluation pending. 02/09/17 21:22 The patient did not have a large amount of bleeding after using the nasal spray , but when he started moving around he had additional bleeding. We agreed that packing would be appropriate. We attempted to place a 7.5 cm Rhino Rocket in the left naris. This is very poorly tolerated. The nasal passage was extremely narrow. We needed to discontinue that effort. I placed 2% viscous lidocaine in the patient's left nare with the plan of placing a Rhino Rocket. After about 15 minutes, with the viscous lidocaine in the naris, I was able to place a 5.5 cm Rhino Rocket. Again, this was not well tolerated, but we were able to place it to an appropriate depth. The bulb has been inflated. The patient is now more comfortable and tolerating it well. We are observing him currently to ensure no rebleeding. He has some blood in his oropharynx, but no active bleeding at this time. I will begin treatment with Keflex due to a foreign body now in his nasal passage. 02/09/17 21:53 Reexamination at this time finds the patient doing well. He has no ongoing bleeding. There is no bleeding into the posterior oropharynx. He feels comfortable. We will discharge him home. I have outlined follow-up, including removal of the Rhino Rocket in days. This would land on this coming weekend. The patient may need to wait until Wednesday to have it removed. We will refer him to an ear nose and throat doctor. He will also call up his primary physician for ongoing care and review of his somewhat subtherapeutic INR. - Vital Signs Vital signs: Temp Pulse Resp BP Pulse Ox 122/97 H 98 02/09/17 17:51 02/09/17 17:51 - Laboratory Result Diagrams: 02/09/17 20:15 02/09/17 20:15 Laboratory results interpreted by me: 02/09/17 02/09/17 02/09/17 20:15 20:15 20:15 RBC 4.34 L RDW 15.0 H Seg Neutrophils % 79.6 H Lymphocytes % 12.6 L PT 21.4 H Potassium 3.5 L BUN 27 H Glucose 129 H Discharge - Discharge Clinical Impression: Epistaxis Condition: Good Disposition: HOME, SELF-CARE Instructions: Nosebleed Instructions ([facility]) Additional Instructions: The Rhino Rocket in your left nose needs to be removed in 4-7 days. Speak with your primary physician but you may also follow with Dr. Zee. Your INR was a little bit subtherapeutic today at 1.7. Speak with your physicians at [facility] or your primary physician about your Coumadin dose. Take Keflex as prescribed as long as you have the Rhino Rocket in your nose. Return to the emergency department if you have resumed bleeding, if you have any fever, or if you have any other urgent concerns. Prescriptions: Cephalexin Monohydrate [Keflex 500 mg Capsule] 500 mg PO TID 5 Days #18 capsule Referrals: MARIAH MIRAMONTES MD [Primary Care Provider] - Follow up as needed
[2017-02-09] MEDS ORDERED: LIDOCAINE 2% JELLY 5 ML TUBE TOP ONE (20:24)
[2017-02-09 20:36] LABS: ABSOLUTE BASOPHILS # (AUTO) 0.1 10^3/uL (0.0-0.2); ABSOLUTE LYMPHOCYTES (AUTO) 1.2 10^3/uL (0.5-4.7); ABSOLUTE MONOCYTES (AUTO) 0.6 10^3/uL (0.1-1.4); ABSOLUTE NEUT (AUTO) 7.5 10^3/uL (1.7-8.2); BASOPHILS % (AUTO) 0.8 % (0-2); EOSINOPHILS % (AUTO) 0.2 % (0-6); HEMATOCRIT 39.6 % (37.9-51.0); HEMOGLOBIN 13.5 g/dL (13.5-17.0); HGB HCT DIFFERENCE 0.9; LYMPHOCYTES % (AUTO) 12.6 % (13-45); MEAN CORPUSCULAR HEMOGLOBIN 31.2 pg (27.0-33.4); MEAN CORPUSCULAR HGB CONC 34.1 g/dL (32.0-36.0); MEAN CORPUSCULAR VOLUME 91 fl (80-97); MONOCYTES % (AUTO) 6.8 % (3-13); RED BLOOD COUNT 4.34 10^6/uL (4.35-5.55); SEGMENTED NEUTROPHILS % (AUTO) 79.6 % (42-78); WHITE BLOOD COUNT 9.4 10^3/uL (4.0-10.5)
[2017-02-09 20:42] LABS: PROTHROMBIN TIME 21.4 SEC (11.4-15.4)
[2017-02-09 20:57] LABS: ANION GAP 10 (5-19); BLOOD UREA NITROGEN 27 mg/dL (7-20); CALCIUM 9.2 mg/dL (8.4-10.2); CARBON DIOXIDE 29 mmol/L (22-30); CHLORIDE 103 mmol/L (98-107); CREATININE RESULT 1.15 mg/dL (0.52-1.25); GLUCOSE 129 mg/dL (75-110); POTASSIUM 3.5 mmol/L (3.6-5.0)
[2017-02-09] MEDS ORDERED: CEPHALEXIN 500 MG CAPSULE PO ONE (21:24)
[2017-02-09 22:05] VITALS: BP 139/106
== END 2017-02-09 22:26 | disposition home or self-care (01) ==
LOC: ER 17:45
DX: R04.0 Epistaxis (principal); I48.91 Unspecified atrial fibrillation; I10 Essential (primary) hypertension; I25.10 Atherosclerotic heart disease of native coronary artery without angina pectoris; I25.2 Old myocardial infarction; Z95.811 Presence of heart assist device; Z79.01 Long term (current) use of anticoagulants; Z95.5 Presence of coronary angioplasty implant and graft; Z95.810 Presence of automatic (implantable) cardiac defibrillator
CPT/HCPCS: 99283; 36415; 85025; 85610; 80048; 30901; A9270

== ENCOUNTER → 2017-02-22 | Outpatient (CLI) | payer MEDICARE ==
[2017-02-22 13:05] LABS: ANION GAP 10 (5-19); BLOOD UREA NITROGEN 15 mg/dL (7-20); CARBON DIOXIDE 25 mmol/L (22-30); CHLORIDE 107 mmol/L (98-107); CREATININE RESULT 1.01 mg/dL (0.52-1.25); GLUCOSE 106 mg/dL (75-110); POTASSIUM 3.8 mmol/L (3.6-5.0); SODIUM 142.1 mmol/L (137-145)
[2017-02-22 13:06] LABS: PROTHROMBIN TIME 49.6 SEC (11.4-15.4)
== END ==
LOC: OD 12:01
PROVIDERS: ATTEND Internal Medicine Advanced Heart Failure and Transplant Cardiology
DX: I50.9 Heart failure, unspecified (principal); Z79.01 Long term (current) use of anticoagulants; Z95.811 Presence of heart assist device
CPT/HCPCS: 36415; 80048; 85610

== ENCOUNTER → 2017-03-09 | Outpatient (CLI) | payer MEDICARE ==
[2017-03-09 13:10] LABS: PROTHROMBIN TIME 22.1 SEC (11.4-15.4)
[2017-03-09 13:25] LABS: ANION GAP 10 (5-19); BLOOD UREA NITROGEN 19 mg/dL (7-20); CALCIUM 9.4 mg/dL (8.4-10.2); CARBON DIOXIDE 27 mmol/L (22-30); CHLORIDE 105 mmol/L (98-107); CREATININE RESULT 1.01 mg/dL (0.52-1.25); GLUCOSE 86 mg/dL (75-110); POTASSIUM 3.6 mmol/L (3.6-5.0)
== END ==
LOC: OD 12:36
PROVIDERS: ATTEND Internal Medicine Advanced Heart Failure and Transplant Cardiology
DX: I50.9 Heart failure, unspecified (principal); Z79.01 Long term (current) use of anticoagulants; Z95.811 Presence of heart assist device
CPT/HCPCS: 36415; 80048; 85610

== ENCOUNTER → 2017-03-29 | Outpatient (CLI) | payer MEDICARE ==
[2017-03-29 14:09] LABS: HEMATOCRIT 30.5 % (37.9-51.0); HEMOGLOBIN 9.9 g/dL (13.5-17.0); HGB HCT DIFFERENCE -0.8; MEAN CORPUSCULAR HEMOGLOBIN 26.5 pg (27.0-33.4); MEAN CORPUSCULAR HGB CONC 32.6 g/dL (32.0-36.0); MEAN CORPUSCULAR VOLUME 81 fl (80-97); RED BLOOD COUNT 3.75 10^6/uL (4.35-5.55); RED CELL DISTRIBUTION WIDTH 18.3 % (11.5-14.0); WHITE BLOOD COUNT 6.6 10^3/uL (4.0-10.5)
[2017-03-29 14:14] LABS: PROTHROMBIN TIME 16.2 SEC (11.4-15.4)
[2017-03-29 14:27] LABS: ANION GAP 13 (5-19); BLOOD UREA NITROGEN 18 mg/dL (7-20); CALCIUM 9.1 mg/dL (8.4-10.2); CARBON DIOXIDE 31 mmol/L (22-30); CHLORIDE 99 mmol/L (98-107); CREATININE RESULT 1.15 mg/dL (0.52-1.25); GLUCOSE 98 mg/dL (75-110)
[2017-03-29 14:41] LABS: POTASSIUM 2.9 mmol/L (3.6-5.0)
== END ==
LOC: OD 13:30
PROVIDERS: ATTEND Internal Medicine Advanced Heart Failure and Transplant Cardiology
DX: I50.9 Heart failure, unspecified (principal); Z79.01 Long term (current) use of anticoagulants; Z95.811 Presence of heart assist device
CPT/HCPCS: 36415; 80048; 85027; 85610

== ENCOUNTER → 2017-04-05 | Outpatient (CLI) | payer MEDICARE ==
[2017-04-05 11:43] LABS: HEMATOCRIT 33.5 % (37.9-51.0); HEMOGLOBIN 10.8 g/dL (13.5-17.0); HGB HCT DIFFERENCE -1.1; MEAN CORPUSCULAR HEMOGLOBIN 26.7 pg (27.0-33.4); MEAN CORPUSCULAR HGB CONC 32.2 g/dL (32.0-36.0); MEAN CORPUSCULAR VOLUME 83 fl (80-97); RED BLOOD COUNT 4.04 10^6/uL (4.35-5.55); RED CELL DISTRIBUTION WIDTH 20.2 % (11.5-14.0); WHITE BLOOD COUNT 7.2 10^3/uL (4.0-10.5)
[2017-04-05 12:06] LABS: ANION GAP 10 (5-19); BLOOD UREA NITROGEN 18 mg/dL (7-20); CALCIUM 9.3 mg/dL (8.4-10.2); CARBON DIOXIDE 28 mmol/L (22-30); CHLORIDE 102 mmol/L (98-107); CREATININE RESULT 1.03 mg/dL (0.52-1.25); GLUCOSE 103 mg/dL (75-110); POTASSIUM 4.9 mmol/L (3.6-5.0); SODIUM 139.5 mmol/L (137-145)
== END ==
LOC: OD 11:17
PROVIDERS: ATTEND Internal Medicine Advanced Heart Failure and Transplant Cardiology
DX: I50.9 Heart failure, unspecified (principal); Z79.01 Long term (current) use of anticoagulants; Z95.811 Presence of heart assist device
CPT/HCPCS: 36415; 80048; 85027

== ENCOUNTER → 2017-04-20 | Outpatient (CLI) | payer MEDICARE ==
[2017-04-20 13:26] LABS: HEMATOCRIT 37.1 % (37.9-51.0); HGB HCT DIFFERENCE -1.1; MEAN CORPUSCULAR HEMOGLOBIN 27.2 pg (27.0-33.4); MEAN CORPUSCULAR HGB CONC 32.4 g/dL (32.0-36.0); MEAN CORPUSCULAR VOLUME 84 fl (80-97); RED BLOOD COUNT 4.42 10^6/uL (4.35-5.55); RED CELL DISTRIBUTION WIDTH 22.6 % (11.5-14.0); WHITE BLOOD COUNT 5.5 10^3/uL (4.0-10.5)
[2017-04-20 13:32] LABS: PROTHROMBIN TIME 15.8 SEC (11.4-15.4)
[2017-04-20 13:35] LABS: D-DIMER 2.42 ug/mL (0.00-0.50)
== END ==
LOC: OD 12:53
PROVIDERS: ATTEND Internal Medicine Advanced Heart Failure and Transplant Cardiology
DX: I50.9 Heart failure, unspecified (principal); Z79.01 Long term (current) use of anticoagulants; Z95.811 Presence of heart assist device
CPT/HCPCS: 36415; 85027; 85379; 85610

== ENCOUNTER → 2017-04-23 | Outpatient (CLI) | payer MEDICARE ==
[2017-04-23 12:11] LABS: INTERNATIONAL RATION (INR) 1.92; PROTHROMBIN TIME 23.1 SEC (11.4-15.4)
== END ==
LOC: OD 11:39
PROVIDERS: ATTEND Internal Medicine Advanced Heart Failure and Transplant Cardiology
DX: Z79.01 Long term (current) use of anticoagulants (principal); Z95.811 Presence of heart assist device
CPT/HCPCS: 36415; 85610

== ENCOUNTER 2017-04-26 11:27 | Emergency (ER) | payer MEDICARE ==
[2017-04-26] MEDS ORDERED: HYDROCODONE/ACETAMINOPHEN 5-325 MG TABLET PO ONE (12:34)
[2017-04-26 13:05] LABS: ABSOLUTE LYMPHOCYTES (AUTO) 0.6 10^3/uL (0.5-4.7); ABSOLUTE MONOCYTES (AUTO) 0.7 10^3/uL (0.1-1.4); ABSOLUTE NEUT (AUTO) 3.3 10^3/uL (1.7-8.2); BASOPHILS % (AUTO) 0.5 % (0-2); EOSINOPHILS % (AUTO) 0.4 % (0-6); HEMATOCRIT 35.9 % (37.9-51.0); HEMOGLOBIN 11.7 g/dL (13.5-17.0); LYMPHOCYTES % (AUTO) 12.8 % (13-45); MEAN CORPUSCULAR HEMOGLOBIN 27.6 pg (27.0-33.4); MEAN CORPUSCULAR HGB CONC 32.7 g/dL (32.0-36.0); MEAN CORPUSCULAR VOLUME 84 fl (80-97); MONOCYTES % (AUTO) 14.8 % (3-13); PLATELET COUNT 135 10^3/uL (150-450); RED BLOOD COUNT 4.25 10^6/uL (4.35-5.55); RED CELL DISTRIBUTION WIDTH 23.7 % (11.5-14.0); SEGMENTED NEUTROPHILS % (AUTO) 71.5 % (42-78); TOTAL CELLS COUNTED % (AUTO) 100 %; WHITE BLOOD COUNT 4.6 10^3/uL (4.0-10.5)
[2017-04-26 13:10] LABS: INTERNATIONAL RATION (INR) 2.31; PROTHROMBIN TIME 26.6 SEC (11.4-15.4)
[2017-04-26 13:19] LABS: ALANINE AMINOTRANSFERASE 27 U/L (21-72); ALBUMIN 3.8 g/dL (3.5-5.0); ALKALINE PHOSPHATASE 72 U/L (38-126); ANION GAP 10 (5-19); ASPARTATE AMINO TRANSFERASE 23 U/L (17-59); BILIRUBIN,DIRECT 0.2 mg/dL (0.0-0.4); BILIRUBIN,TOTAL 0.7 mg/dL (0.2-1.3); BLOOD UREA NITROGEN 14 mg/dL (7-20); CALCIUM 9.6 mg/dL (8.4-10.2); CARBON DIOXIDE 27 mmol/L (22-30); CHLORIDE 103 mmol/L (98-107); GLUCOSE 102 mg/dL (75-110); POTASSIUM 3.3 mmol/L (3.6-5.0); SODIUM 139.7 mmol/L (137-145); TOTAL PROTEIN 6.5 g/dL (6.3-8.2)
[2017-04-26] MEDS ORDERED: COLCHICINE 0.6 MG TABLET PO ONE ×2 (14:06→14:46)
[2017-04-26] MEDS ORDERED: INDOMETHACIN 50 MG CAPSULE PO ONE (14:06)
--- NOTE | 2017-04-26 14:20 | RADIOLOGY REPORT (SQ) ---
EXAM DESCRIPTION: VENOUS UNILATERAL UPPER COMPLETED DATE/TIME: 04/26/2017 1:56 pm REASON FOR STUDY: swelling, pain right elbow, hx blood clot COMPARISON: None. TECHNIQUE: Dynamic and static jolly scale and color images acquired of the right arm venous system. S elected spectral images acquired with additional compression and augmentation maneuvers. The contrala teral subclavian vein and internal jugular vein were also imaged. Images stored on PACS. LIMITATIONS: None. FINDINGS: INTERNAL JUGULAR VEIN: Normal phasicity, compression, augmentation. No visualized echogeni c material on jolly scale. No defects on color images. Comparison opposite side normal. SUBCLAVIAN VEIN: Normal compression, augmentation. No visualized echogenic material on jolly scale. No defects on color images. AXILLARY VEIN: Normal compression, augmentation. No visualized echogenic material on jolly scale. No d efects on color images. BRACHIAL VEIN: Normal compression, augmentation. No visualized echogenic material on jolly scale. No d efects on color images. BASILIC VEIN: Chronic thrombus. CEPHALIC VEIN: Normal compression, augmentation. No visualized echogenic material on jolly scale. No d efects on color images. OTHER: No other significant finding. CONTRALATERAL SUBCLAVIAN VEIN AND INTERNAL JUGULAR VEIN: Normal phasicity, compression and augmentation. No visualized echogenic material on jolly scale. No de fects on color images. IMPRESSION: NO EVIDENCE DVT IN THE RIGHT ARM. CHRONIC THROMBUS RIGHT BASILIC VEIN WHICH WAS PREVIOUSLY KNOWN. TECHNICAL DOCUMENTATION: JOB ID: [id number] [employer]- All Rights Reserved
--- NOTE | 2017-04-26 14:39 | RADIOLOGY REPORT (SQ) ---
EXAM DESCRIPTION: ELBOW RIGHT OVER 2 VIEWS COMPLETED DATE/TIME: 04/26/2017 2:19 pm REASON FOR STUDY: right elbow pain COMPARISON: None. NUMBER OF VIEWS: Four views. TECHNIQUE: AP, lateral, and both oblique radiographic images acquired of the right elbow. LIMITATIONS: None. FINDINGS: MINERALIZATION: Normal. BONES: Irregularity of the radial head which could be secondary to osteophytes or nondisplaced fractu re. No worrisome bone lesions. Mild olecranon enthesopathy with adjacent calcification. JOINT: Mild osteoarthritis. Joint effusion. SOFT TISSUES: No soft tissue swelling. No foreign body. OTHER: No other significant finding. IMPRESSION: MILD OSTEOARTHRITIS OF THE LEFT ELBOW ALONG LENGTH OLECRANON ENTHESOPATHY IN SOFT TISSUE CALCIFICATIONS SUGGESTIVE OF CALCIFIC TENDINOSIS. ADDITIONAL NOTE IS MADE OF JOINT EFFUSION AND IRR EGULARITY OF THE RADIAL HEAD WHICH COULD BE SECONDARY TO NONDISPLACED FRACTURE OR DEGENERATIVE CHANGE . CORRELATE WITH ANY HISTORY OF TRAUMA. TECHNICAL DOCUMENTATION: JOB ID: [id number] [employer]- All Rights Reserved
--- NOTE | 2017-04-26 14:46 | ER Document Report ---
ED Extremity Problem, Upper - General Chief Complaint: Arm Pain Stated Complaint: POSSIBLE BLOOD CLOT Time Seen by Provider: 04/26/17 11:54 Mode of Arrival: Ambulatory Information source: Patient Notes: Pt is a 71 year old male with a history of A fib on coumadin who presents to the ER today for right elbow pain and swelling to the back of his elbow. Pt states he was recently diagnosed with a superficial blood clot to the inside of the elbow after having blood drawn for his coumadin. He states he started 3 days ago having pain and swelling to the back of the elbow too. No hsitory of DVT, he denies any chest pain or shortness of breath. He does have a history of gout as well and just had an oyster roast right before symptoms started. He also has eaten a lot of red meat but denies any alcohol consumption. He denies injury. TRAVEL OUTSIDE OF THE [place] IN LAST 30 DAYS: No - Related Data Allergies/Adverse Reactions: prazosin [Prazosin] Adverse Reaction (Verified 04/26/17 11:29) Heart Palpitations Past Medical History - General Information source: Patient - Social History Smoking Status: Never Smoker Family History: Reviewed & Not Pertinent - Past Medical History Cardiac Medical History: Reports: Hx Atrial Fibrillation, Hx Congestive Heart Failure, Hx Coronary Artery Disease, Hx Heart Attack - 01/2012, Hx Hypercholesterolemia, Hx Hypertension Pulmonary Medical History: Reports: Hx Pneumonia Denies: Hx Tuberculosis Renal/ Medical History: Reports: Hx Kidney Stones. Denies: Hx Peritoneal Dialysis Musculoskeltal Medical History: Reports Hx Arthritis Psychiatric Medical History: Denies: Hx Depression Past Surgical History: Reports: Hx Cardiac Catheterization, Hx Cardiac Surgery - LVAD, Hx Coronary Stent, Hx Genitourinary Surgery - prostate surgery, Hx Internal Defibrillator, Hx Orthopedic Surgery - bilateral hips, left knee, Hx Pacemaker - 2004, Other - LVAD - Immunizations Hx Diphtheria, Pertussis, Tetanus Vaccination: Yes Hx Pneumococcal Vaccination: 01/22/12 Review of Systems - Review of Systems Constitutional: No symptoms reported EENT: No symptoms reported Cardiovascular: See HPI Respiratory: No symptoms reported Gastrointestinal: No symptoms reported Genitourinary: No symptoms reported Male Genitourinary: No symptoms reported Musculoskeletal: See HPI Skin: See HPI Hematologic/Lymphatic: No symptoms reported Neurological/Psychological: No symptoms reported Physical Exam - Vital signs Vitals: Temp Pulse Resp BP Pulse Ox 98.9 F 64 18 134/87 H 99 04/26/17 11:31 04/26/17 11:31 04/26/17 11:31 04/26/17 11:31 04/26/17 11:31 - Notes Notes: PHYSICAL EXAMINATION: GENERAL: Well-appearing and in no acute distress. HEAD: Atraumatic, normocephalic. EYES: Pupils equal round and reactive to light, extraocular movements intact, sclera anicteric, conjunctiva are normal. NECK: Normal range of motion, supple without lymphadenopathy LUNGS: CTAB and equal. No wheezes rales or rhonchi. HEART: Regular rate and rhythm without murmurs EXTREMITIES: limited range of motion of right elbow due to swelling and pain, no pitting edema. No cyanosis. NEUROLOGICAL: Cranial nerves grossly intact. Normal sensory/motor exams. PSYCH: Normal mood, normal affect. SKIN: Warm, Dry, normal turgor, swelling and induration noted to right dorsal elbow, extremely tender to palpation with light touch, small ecchymoses noted to antecubital space Course - Re-evaluation Re-evalutation: 04/28/17 11:38 chronic basilic vein thrombus to right elbow, no change, uric acid high end of normal today, no evidence of fracture with clinical history combined with x ray of elbow. Will treat for gout attack with 2 doses of colchicine per protocol for flare and a few doses of indomethacin for pain. Pt has chronic renal insufficiency so I will not prescribe colchicine or indomethacin for longer than this. - Vital Signs Vital signs: Temp Pulse Resp BP Pulse Ox 98.9 F 64 29 H 152/120 H 89 L 04/26/17 11:31 04/26/17 11:31 04/26/17 14:55 04/26/17 14:55 04/26/17 15:00 - Laboratory Result Diagrams: 04/26/17 12:50 04/26/17 12:50 Laboratory results interpreted by me: 04/26/17 04/26/17 04/26/17 12:50 12:50 12:50 RBC 4.25 L Hgb 11.7 L Hct 35.9 L RDW 23.7 H Plt Count 135 L Lymphocytes % 12.8 L Monocytes % 14.8 H PT 26.6 H Potassium 3.3 L Discharge - Discharge Clinical Impression: Superficial venous thrombosis of right arm, Pain and swelling of right elbow Condition: Stable Disposition: HOME, SELF-CARE Additional Instructions: Return immediately for any new or worsening symptoms. Follow up with primary care provider, call tomorrow to make followup appointment. Prescriptions: Indomethacin [Indocin 50 mg Capsule] 50 mg PO TID PRN #30 capsule PRN Reason: Referrals: MARIAH MIRAMONTES MD [Primary Care Provider] - Follow up as needed
[2017-04-26 15:15] VITALS: BP 152/120
--- NOTE | 2017-04-27 09:43 | EKG REPORT ---
SEVERITY:- ABNORMAL ECG - ATRIAL FIBRILLATION, V-RATE 63-117 VENTRICULAR BIGEMINY INDETERMINATE QRS AXIS LOW VOLTAGE IN FRONTAL LEADS ABNORMAL T, CONSIDER ISCHEMIA, ANT-LAT LEADS BORDERLINE PROLONGED QT INTERVAL : Confirmed by: Rukhsana Zendejas 27-Apr-2017 09:42:46
== END 2017-04-26 15:00 | disposition home or self-care (01) ==
LOC: ER 11:27
DX: I82.711 Chronic embolism and thrombosis of superficial veins of right upper extremity (principal); M10.9 Gout, unspecified; M25.521 Pain in right elbow; I12.9 Hypertensive chronic kidney disease with stage 1 through stage 4 chronic kidney disease, or unspecified chronic kidney disease; N18.9 Chronic kidney disease, unspecified; I48.91 Unspecified atrial fibrillation; I25.10 Atherosclerotic heart disease of native coronary artery without angina pectoris; I25.2 Old myocardial infarction; Z79.01 Long term (current) use of anticoagulants; Z95.5 Presence of coronary angioplasty implant and graft; Z95.811 Presence of heart assist device; Z95.810 Presence of automatic (implantable) cardiac defibrillator
CPT/HCPCS: 93005; 99284; 36415; 84550; 85025; 85610; 80053; 93971; 73080; 93010; A9270 ×3; J3490

== ENCOUNTER 2017-05-03 15:58 | Emergency (ER) | payer MEDICARE ==
--- NOTE | 2017-05-03 16:45 | ER Document Report ---
ED Medical Screen (RME) - General Chief Complaint: Flu Symptoms Stated Complaint: SHORTNESS OF BREATH Time Seen by Provider: 05/03/17 16:32 Notes: pt with LVAD, has cough/sob/congestion TRAVEL OUTSIDE OF THE [place] IN LAST 30 DAYS: No - Related Data Allergies/Adverse Reactions: prazosin [Prazosin] Adverse Reaction (Verified 05/03/17 16:02) Heart Palpitations Past Medical History - Social History Chew tobacco use (# tins/day): No Frequency of alcohol use: None Drug Abuse: None - Past Medical History Cardiac Medical History: Reports: Hx Atrial Fibrillation, Hx Congestive Heart Failure, Hx Coronary Artery Disease, Hx Heart Attack - 01/2012, Hx Hypercholesterolemia, Hx Hypertension Pulmonary Medical History: Reports: Hx Pneumonia Denies: Hx Tuberculosis Renal/ Medical History: Reports: Hx Kidney Stones. Denies: Hx Peritoneal Dialysis Musculoskeltal Medical History: Reports Hx Arthritis Psychiatric Medical History: Denies: Hx Depression Past Surgical History: Reports: Hx Abdominal Surgery - hernia x4, Hx Cardiac Catheterization, Hx Cardiac Surgery - LVAD, Hx Coronary Stent, Hx Genitourinary Surgery - prostate surgery, Hx Internal Defibrillator, Hx Orthopedic Surgery - bilateral hips, left knee, Hx Pacemaker - 2004, Hx Tonsillectomy, Other - LVAD - Immunizations Hx Diphtheria, Pertussis, Tetanus Vaccination: Yes Physical Exam - Vital signs Vitals: Temp Pulse Resp BP Pulse Ox 98.6 F 66 18 136/97 H 98 05/03/17 16:05 05/03/17 16:05 05/03/17 16:05 05/03/17 16:05 05/03/17 16:05 Course - Vital Signs Vital signs: Temp Pulse Resp BP Pulse Ox 98.6 F 66 18 136/97 H 98 05/03/17 16:05 05/03/17 16:05 05/03/17 16:05 05/03/17 16:05 05/03/17 16:05
[2017-05-03 18:09] LABS: ABSOLUTE LYMPHOCYTES (AUTO) 0.6 10^3/uL (0.5-4.7); ABSOLUTE MONOCYTES (AUTO) 0.4 10^3/uL (0.1-1.4); ABSOLUTE NEUT (AUTO) 2.9 10^3/uL (1.7-8.2); BASOPHILS % (AUTO) 0.5 % (0-2); EOSINOPHILS % (AUTO) 0.2 % (0-6); HEMATOCRIT 38.3 % (37.9-51.0); HEMOGLOBIN 12.2 g/dL (13.5-17.0); MEAN CORPUSCULAR HEMOGLOBIN 26.4 pg (27.0-33.4); MEAN CORPUSCULAR HGB CONC 31.9 g/dL (32.0-36.0); MEAN CORPUSCULAR VOLUME 83 fl (80-97); MONOCYTES % (AUTO) 10.9 % (3-13); PLATELET COUNT 124 10^3/uL (150-450); RED BLOOD COUNT 4.62 10^6/uL (4.35-5.55); RED CELL DISTRIBUTION WIDTH 22.9 % (11.5-14.0); SEGMENTED NEUTROPHILS % (AUTO) 73.4 % (42-78); TOTAL CELLS COUNTED % (AUTO) 100 %
[2017-05-03 18:28] LABS: ANISOCYTOSIS 2+; HYPOCHROMASIA SLIGHT; PLATELET COMMENT ADEQUATE; POLYCHROMASIA SLIGHT
[2017-05-03 18:36] LABS: ALANINE AMINOTRANSFERASE 20 U/L (21-72); ALBUMIN 4.1 g/dL (3.5-5.0); ALKALINE PHOSPHATASE 98 U/L (38-126); ANION GAP 12 (5-19); ASPARTATE AMINO TRANSFERASE 39 U/L (17-59); BILIRUBIN,DIRECT 0.4 mg/dL (0.0-0.4); BILIRUBIN,TOTAL 0.6 mg/dL (0.2-1.3); BLOOD UREA NITROGEN 14 mg/dL (7-20); CALCIUM 9.2 mg/dL (8.4-10.2); CARBON DIOXIDE 27 mmol/L (22-30); CHLORIDE 100 mmol/L (98-107); GLUCOSE 99 mg/dL (75-110); POTASSIUM 3.1 mmol/L (3.6-5.0); SODIUM 138.6 mmol/L (137-145); TOTAL PROTEIN 7.2 g/dL (6.3-8.2)
[2017-05-03] MEDS ORDERED: METHYLPREDNISOLONE INJ 125 MG/2 ML SDV IV ONE (19:07)
[2017-05-03] MEDS ORDERED: IPRATROPIUM/ALBUTEROL 0.5-2.5 MG/3 ML AMPUL NEB ONE (19:07)
--- NOTE | 2017-05-03 19:11 | ER Document Report ---
ED General - General Chief Complaint: Flu Symptoms Stated Complaint: SHORTNESS OF BREATH Time Seen by Provider: 05/03/17 16:32 Notes: Patient is a 71-year-old male with a past medical history of congestive heart failure last ejection fraction of 80% currently dependent on a ventricular assist device placement 2013 at [facility], a history of ongoing hypertension, hyperlipidemia, morbid obesity, and a prior history of possible COPD who presents with 4 days of progressively worsening shortness of breath, cough, sore throat and nausea. He has not had any vomiting or diarrhea. His family at the bedside notes that his work of breathing became progressively worse over the last several days which is what prompted them to bring him to the emergency department. They note although his breathing is never "normal" and has been much more labored particular last 12 hours. Nothing seems to improve or worsen his symptoms. The patient does admit that he continues to have poor medication compliance particularly with his bumetanide which he notes he takes irregularly. He is supposed to be taking 2 mg twice daily. He has not had a fever. 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 IN LAST 30 DAYS: No - Related Data Allergies/Adverse Reactions: prazosin [Prazosin] Adverse Reaction (Verified 05/03/17 16:02) Heart Palpitations Past Medical History - General Information source: Patient - Social History Smoking Status: Never Smoker Chew tobacco use (# tins/day): No Frequency of alcohol use: None Drug Abuse: None Lives with: Spouse/Significant other Family History: Reviewed & Not Pertinent Patient has suicidal ideation: No Patient has homicidal ideation: No - Past Medical History Cardiac Medical History: Reports: Hx Atrial Fibrillation, Hx Congestive Heart Failure, Hx Coronary Artery Disease, Hx Heart Attack - 01/2012, Hx Hypercholesterolemia, Hx Hypertension Pulmonary Medical History: Reports: Hx Pneumonia Denies: Hx Tuberculosis Renal/ Medical History: Reports: Hx Kidney Stones. Denies: Hx Peritoneal Dialysis Musculoskeltal Medical History: Reports Hx Arthritis Psychiatric Medical History: Denies: Hx Depression Past Surgical History: Reports: Hx Abdominal Surgery - hernia x4, Hx Cardiac Catheterization, Hx Cardiac Surgery - LVAD, Hx Coronary Stent, Hx Genitourinary Surgery - prostate surgery, Hx Internal Defibrillator, Hx Orthopedic Surgery - bilateral hips, left knee, Hx Pacemaker - 2004, Hx Tonsillectomy, Other - LVAD - Immunizations Hx Diphtheria, Pertussis, Tetanus Vaccination: Yes Hx Pneumococcal Vaccination: 01/22/12 Review of Systems - Review of Systems Notes: Constitutional: Negative for fever. HENT: Positive for sore throat. Eyes: Negative for visual changes. Cardiovascular: Negative for chest pain. Respiratory: Positive for shortness of breath. Gastrointestinal: Negative for abdominal pain, vomiting or diarrhea. Genitourinary: Negative for dysuria. Musculoskeletal: Negative for back pain. Skin: Negative for rash. Neurological: Negative for headaches, weakness or numbness. 10 point ROS negative except as marked above and in HPI. Physical Exam - Vital signs Vitals: Temp Pulse Resp BP Pulse Ox 98.6 F 66 18 136/97 H 98 05/03/17 16:05 05/03/17 16:05 05/03/17 16:05 05/03/17 16:05 05/03/17 16:05 Interpretation: Normal Notes: PHYSICAL EXAMINATION: GENERAL: Somewhat chronically ill in appearance but in no acute distress HEAD: Atraumatic, normocephalic. EYES: Pupils equal round and reactive to light, extraocular movements intact, sclera anicteric, conjunctiva are normal. ENT: nares patent, oropharynx clear without exudates. Moist mucous membranes. NECK: Normal range of motion, supple without lymphadenopathy LUNGS: Mildly diminished air movement in all lung garcia. Moderate tachypnea, rate 26-28 breaths per minute at bedside. X-ray wheezing in all lung garcia. HEART: Irregular tachycardia, VAD noises noted ABDOMEN: Soft, nontender, normoactive bowel sounds. No guarding, no rebound. No masses appreciated. EXTREMITIES: Normal range of motion, 2+ pitting edema that is equal and symmetric in the bilateral lower extremities NEUROLOGICAL: No focal neurological deficits. Moves all extremities spontaneously and on command. PSYCH: Normal mood, normal affect. SKIN: Warm, Dry, normal turgor, no rashes or lesions noted. Course - Re-evaluation Re-evalutation: 05/03/17 19:09 Patient presents with 4 days of shortness of breath, cough, postnasal drip, sore throat in the setting of having a ventricular assist device. On assessment patient appears visibly dyspneic breathing between 26 and 20 times per minute although he does not have an oxygen dependency. There is wheezing in all lung garcia and is slightly diminished in terms of his air movement in all lung garcia particular at the bases. His was just diagnosed with influenza A today. Patient was put on also time of year for preventative measures given the literature does support to prevent transmission with close contacts. Will also begin nebulizer treatments and steroids. Awaiting chest x- ray. Patient's troponin is noted to be mildly elevated at 0.09 and I do not have a recent old for comparison as the last one is from 05/20/2014 at which time it was 0.032. He has had his ventricular assist device in place since 2013. Patient does admit to some noncompliance with his bumetanide and does have 2+ pitting edema in the bilateral lower extremities. Pulmonary edema is also certainly on the differential as the source of his shortness of breath and wheezing. He does not have additional clinical symptoms to suggest the diagnosis of influenza as he has not had any vomiting or diarrhea or fever. However will formally test for flu. Will consult with the cardiology department at [facility] for guidance although anticipated patient's work of breathing does not improve he should be transferred 05/03/17 20:08 Patient's work of breathing has not significantly improved after nebulizer therapies. He continues to have moderate tachypnea, pursed lip breathing, respiratory rate remains in the upper 20s. Chest x-ray shows cardiomegaly but no overt pulmonary edema. Given patient's increased work of breathing and is very tenuous status at baseline secondary to his ventricular assist device I do not believe that he is safe for discharge home. [facility] has been contacted for transfer. 05/03/17 20:30 Patient's work of breathing continues to be elevated, current respiratory rate at 26 breaths per minute. Given his lack of improvement with nebulizers will initiate BiPAP therapy. 80 mg of IV furosemide has also been administered. A dose of oseltamivir has been administered for prevention given that his was diagnosed with influenza A. His test is negative here. I have discussed this case with at [facility] who has accepted him for transfer at this time. Will continue to monitor closely. 05/03/17 21:57 Patient is having much improved air movement reports that he is extremely anxious with the BiPAP mask. I have offered him a small amount of IV haloperidol to assist with his anxiety without suppressing his respiratory effort. Will also apply condom catheter as patient states that he is worried about taking any kind of sedative medication as he is concerned he will urinate on himself. Overall his work of breathing is much improved. 05/04/17 03:49 Patient continues to keep bipap off but despite this his work of breathing remains stable. He states he is unable/unwilling to tolerate the mask. Currently breathing 24-25 times per minutes saturating 94% on RA. - Vital Signs Vital signs: Temp Pulse Resp BP Pulse Ox 98.4 F 66 29 H 120/98 H 98 05/03/17 23:24 05/03/17 16:05 05/04/17 02:01 05/04/17 02:01 05/04/17 02:01 - Laboratory Result Diagrams: 05/03/17 17:25 05/03/17 17:25 Laboratory results interpreted by me: 05/03/17 05/03/17 05/03/17 17:25 17:25 17:25 Hgb 12.2 L MCH 26.4 L MCHC 31.9 L RDW 22.9 H Plt Count 124 L PT Potassium 3.1 L ALT 20 L NT-Pro-B Natriuret Pep 8940 H 05/03/17 17:25 Hgb MCH MCHC RDW Plt Count PT 29.7 H Potassium ALT NT-Pro-B Natriuret Pep - Diagnostic Test Radiology reviewed: Image reviewed, Reports reviewed Radiology results interpreted by me: 05/04/17 03:51 CXR: No acute pulmonary edema, cardiomegaly Critical Care Note - Critical Care Note Total time excluding time spent on procedures (mins): 36 Comments: Critical care time spent obtaining history from patient or surrogate, discussions with consultants, development of treatment plan with patient or surrogate, evaluation of patient's response to treatment, examination of patient , ordering and performing treatments and interventions, ordering and review of laboratory studies, re-evaluation of patient's condition, ordering and review of radiographic studies and review of old charts Discharge - Discharge Clinical Impression: Shortness of breath, Left ventricular assist device present, Wheezing Volume overload Qualifiers: Hypervolemia type: unspecified Qualified Code(s): E87.70 - Fluid overload, unspecified Condition: Fair Disposition: [facility] Referrals: MARIAH MIRAMONTES MD [Primary Care Provider] - Follow up as needed
--- NOTE | 2017-05-03 19:42 | RADIOLOGY REPORT (SQ) ---
EXAM DESCRIPTION: CHEST SINGLE VIEW COMPLETED DATE/TIME: 05/03/2017 7:26 pm REASON FOR STUDY: sob COMPARISON: 02/09/2017 NUMBER OF VIEWS: One view. TECHNIQUE: Single frontal radiographic image of the chest acquired. LIMITATIONS: None. FINDINGS: LUNGS AND PLEURA: Chronic volume loss on the left. No evidence of pulmonary edema or pneu monia. MEDIASTINUM AND HEART: Stable heart size and mediastinal structures. SUPPORT DEVICES: Appropriate location without change. BONY STRUCTURES: No acute findings. HARDWARE: None. OTHER: No other significant finding. IMPRESSION: Cardiomegaly. No acute findings.
[2017-05-03 19:49] LABS: A TYPE INFLUENZA AG NEGATIVE (NEGATIVE); B INFLUENZA AG NEGATIVE (NEGATIVE)
[2017-05-03] MEDS ORDERED: OSELTAMIVIR PHOSPHATE 75 MG CAPSULE PO ONE (19:57)
[2017-05-03] MEDS ORDERED: FUROSEMIDE INJ/PF 40 MG/4 ML SDV IV ONE (19:59)
[2017-05-03 20:43] LABS: INTERNATIONAL RATION (INR) 2.66; PROTHROMBIN TIME 29.7 SEC (11.4-15.4)
[2017-05-03] MEDS ORDERED: HALOPERIDOL LACTATE INJ 5 MG/1 ML VIAL IV ONE (21:56)
[2017-05-04 06:46] VITALS: BP 111/92
--- NOTE | 2017-05-04 06:54 | EKG REPORT ---
SEVERITY:- ABNORMAL ECG - ATRIAL FIBRILLATION, V-RATE 68-100 RUN OF VENTRICULAR PREMATURE COMPLEXES, NSVT. PROBABLE INFERIOR INFARCT, AGE INDETERMINATE NONSPECIFIC T ABNORMALITIES, ANT-LAT LEADS : Confirmed by: Antonio Albert MD 04-May-2017 06:54:25
== END 2017-05-04 07:59 | disposition short-term general hospital (02) ==
LOC: ER 15:58
DX: R06.02 Shortness of breath (principal); E87.70 Fluid overload, unspecified; R06.2 Wheezing; I50.9 Heart failure, unspecified
CPT/HCPCS: 93005; 94640; 99285; 96374; 96375; 36415; 85025; 85610; 80053; 84484; 87804; 83880; 71045; 93010; 94660; J1940; J1630; J2930; A9270 ×2; J3490; J7620

== ENCOUNTER → 2017-05-11 | Outpatient (CLI) | payer MEDICARE ==
[2017-05-11 14:23] LABS: HEMATOCRIT 38.4 % (37.9-51.0); HEMOGLOBIN 12.7 g/dL (13.5-17.0); MEAN CORPUSCULAR HEMOGLOBIN 27.3 pg (27.0-33.4); MEAN CORPUSCULAR HGB CONC 33.1 g/dL (32.0-36.0); MEAN CORPUSCULAR VOLUME 83 fl (80-97); PLATELET COUNT 140 10^3/uL (150-450); RED BLOOD COUNT 4.65 10^6/uL (4.35-5.55); RED CELL DISTRIBUTION WIDTH 23.1 % (11.5-14.0); WHITE BLOOD COUNT 6.6 10^3/uL (4.0-10.5)
[2017-05-11 14:30] LABS: INTERNATIONAL RATION (INR) 1.78; PROTHROMBIN TIME 21.7 SEC (11.4-15.4)
[2017-05-11 14:42] LABS: ANION GAP 9 (5-19); BLOOD UREA NITROGEN 22 mg/dL (7-20); CALCIUM 9.2 mg/dL (8.4-10.2); CARBON DIOXIDE 28 mmol/L (22-30); CHLORIDE 104 mmol/L (98-107); GLUCOSE 83 mg/dL (75-110); POTASSIUM 4.2 mmol/L (3.6-5.0); SODIUM 140.8 mmol/L (137-145)
== END ==
LOC: OD 13:56
PROVIDERS: ATTEND Internal Medicine Advanced Heart Failure and Transplant Cardiology
DX: I50.9 Heart failure, unspecified (principal); Z79.01 Long term (current) use of anticoagulants; Z95.811 Presence of heart assist device
CPT/HCPCS: 36415; 80048; 85027; 85610; 85730

== ENCOUNTER → 2017-05-14 | Outpatient (CLI) | payer MEDICARE ==
[2017-05-14 15:27] LABS: INTERNATIONAL RATION (INR) 2.24
== END ==
LOC: OD 14:19
PROVIDERS: ATTEND Internal Medicine Advanced Heart Failure and Transplant Cardiology
DX: I50.9 Heart failure, unspecified (principal); Z79.01 Long term (current) use of anticoagulants; Z79.811 Long term (current) use of aromatase inhibitors
CPT/HCPCS: 36415; 85610

== ENCOUNTER → 2017-05-26 | Outpatient (CLI) | payer MEDICARE ==
[2017-05-26 13:25] LABS: INTERNATIONAL RATION (INR) 1.09; PROTHROMBIN TIME 14.9 SEC (11.4-15.4)
[2017-05-26 13:44] LABS: ANION GAP 7 (5-19); BLOOD UREA NITROGEN 22 mg/dL (7-20); CALCIUM 9.6 mg/dL (8.4-10.2); CARBON DIOXIDE 28 mmol/L (22-30); CHLORIDE 104 mmol/L (98-107); GLUCOSE 140 mg/dL (75-110); POTASSIUM 3.2 mmol/L (3.6-5.0); SODIUM 139.4 mmol/L (137-145)
== END ==
LOC: OD 12:37
PROVIDERS: ATTEND Internal Medicine Advanced Heart Failure and Transplant Cardiology
DX: I50.9 Heart failure, unspecified (principal); Z79.01 Long term (current) use of anticoagulants; Z95.811 Presence of heart assist device
CPT/HCPCS: 36415; 80048; 85610

== ENCOUNTER → 2017-06-02 | Outpatient (CLI) | payer MEDICARE ==
[2017-06-02 12:50] LABS: INTERNATIONAL RATION (INR) 1.62; PROTHROMBIN TIME 20.2 SEC (11.4-15.4)
[2017-06-02 12:59] LABS: ANION GAP 10 (5-19); BLOOD UREA NITROGEN 22 mg/dL (7-20); CALCIUM 9.5 mg/dL (8.4-10.2); CARBON DIOXIDE 30 mmol/L (22-30); CHLORIDE 102 mmol/L (98-107); GLUCOSE 117 mg/dL (75-110); POTASSIUM 3.4 mmol/L (3.6-5.0); SODIUM 142.1 mmol/L (137-145)
== END ==
LOC: OD 12:03
PROVIDERS: ATTEND Internal Medicine Advanced Heart Failure and Transplant Cardiology
DX: I50.9 Heart failure, unspecified (principal); Z79.01 Long term (current) use of anticoagulants; Z95.811 Presence of heart assist device
CPT/HCPCS: 36415; 80048; 85610

== ENCOUNTER → 2017-06-07 | Outpatient (CLI) | payer MEDICARE ==
[2017-06-07 12:49] LABS: INTERNATIONAL RATION (INR) 1.34; PROTHROMBIN TIME 17.5 SEC (11.4-15.4)
[2017-06-07 13:03] LABS: ANION GAP 12 (5-19); BLOOD UREA NITROGEN 28 mg/dL (7-20); CALCIUM 9.7 mg/dL (8.4-10.2); CARBON DIOXIDE 28 mmol/L (22-30); CHLORIDE 100 mmol/L (98-107); GLUCOSE 142 mg/dL (75-110); POTASSIUM 4.4 mmol/L (3.6-5.0); SODIUM 140.4 mmol/L (137-145)
== END ==
LOC: OD 11:54
PROVIDERS: ATTEND Internal Medicine Advanced Heart Failure and Transplant Cardiology
DX: I50.9 Heart failure, unspecified (principal); Z79.01 Long term (current) use of anticoagulants; Z95.811 Presence of heart assist device
CPT/HCPCS: 36415; 80048; 85610

== ENCOUNTER → 2017-06-14 | Outpatient (CLI) | payer MEDICARE ==
[2017-06-14 13:05] LABS: INTERNATIONAL RATION (INR) 2.01; PROTHROMBIN TIME 23.9 SEC (11.4-15.4)
[2017-06-14 13:27] LABS: ANION GAP 12 (5-19); BLOOD UREA NITROGEN 24 mg/dL (7-20); CALCIUM 9.8 mg/dL (8.4-10.2); CARBON DIOXIDE 26 mmol/L (22-30); CHLORIDE 103 mmol/L (98-107); GLUCOSE 112 mg/dL (75-110); POTASSIUM 3.4 mmol/L (3.6-5.0); SODIUM 141.4 mmol/L (137-145)
== END ==
LOC: OD 12:07
PROVIDERS: ATTEND Internal Medicine Advanced Heart Failure and Transplant Cardiology
DX: I50.9 Heart failure, unspecified (principal); Z79.01 Long term (current) use of anticoagulants; Z95.811 Presence of heart assist device
CPT/HCPCS: 36415; 80048; 85610

== ENCOUNTER → 2017-06-21 | Outpatient (CLI) | payer MEDICARE ==
[2017-06-21 13:33] LABS: INTERNATIONAL RATION (INR) 2.02
[2017-06-21 13:59] LABS: ANION GAP 12 (5-19); BLOOD UREA NITROGEN 32 mg/dL (7-20); CALCIUM 9.4 mg/dL (8.4-10.2); CARBON DIOXIDE 29 mmol/L (22-30); CHLORIDE 102 mmol/L (98-107); GLUCOSE 66 mg/dL (75-110); POTASSIUM 4.4 mmol/L (3.6-5.0)
== END ==
LOC: OD 12:50
PROVIDERS: ATTEND Internal Medicine Advanced Heart Failure and Transplant Cardiology
DX: I50.9 Heart failure, unspecified (principal); Z79.01 Long term (current) use of anticoagulants; Z95.811 Presence of heart assist device
CPT/HCPCS: 36415; 80048; 85610

== ENCOUNTER → 2017-07-02 | Outpatient (CLI) | payer MEDICARE ==
[2017-07-02 17:14] LABS: ANION GAP 11 (5-19); BLOOD UREA NITROGEN 29 mg/dL (7-20); CALCIUM 9.4 mg/dL (8.4-10.2); CARBON DIOXIDE 25 mmol/L (22-30); CHLORIDE 103 mmol/L (98-107); GLUCOSE 122 mg/dL (75-110); POTASSIUM 4.4 mmol/L (3.6-5.0); SODIUM 139.1 mmol/L (137-145)
[2017-07-02 17:22] LABS: PROTHROMBIN TIME 22.9 SEC (11.4-15.4)
== END ==
LOC: OD 15:12
PROVIDERS: ATTEND Internal Medicine Advanced Heart Failure and Transplant Cardiology
DX: I50.9 Heart failure, unspecified (principal); Z79.01 Long term (current) use of anticoagulants; Z95.811 Presence of heart assist device
CPT/HCPCS: 36415; 80048; 85610

== ENCOUNTER → 2017-07-21 | Outpatient (CLI) | payer MEDICARE ==
[2017-07-21 12:25] LABS: HEMATOCRIT 38.5 % (37.9-51.0); HEMOGLOBIN 12.7 g/dL (13.5-17.0); MEAN CORPUSCULAR HEMOGLOBIN 29.5 pg (27.0-33.4); MEAN CORPUSCULAR HGB CONC 32.9 g/dL (32.0-36.0); MEAN CORPUSCULAR VOLUME 90 fl (80-97); PLATELET COUNT 154 10^3/uL (150-450); RED CELL DISTRIBUTION WIDTH 18.9 % (11.5-14.0); WHITE BLOOD COUNT 5.2 10^3/uL (4.0-10.5)
[2017-07-21 12:35] LABS: INTERNATIONAL RATION (INR) 1.11; PROTHROMBIN TIME 15.1 SEC (11.4-15.4)
[2017-07-21 12:37] LABS: ANION GAP 9 (5-19); BLOOD UREA NITROGEN 21 mg/dL (7-20); CALCIUM 9.4 mg/dL (8.4-10.2); CARBON DIOXIDE 28 mmol/L (22-30); CHLORIDE 105 mmol/L (98-107); GLUCOSE 158 mg/dL (75-110); POTASSIUM 3.7 mmol/L (3.6-5.0); SODIUM 141.6 mmol/L (137-145)
== END ==
LOC: OD 11:20
PROVIDERS: ATTEND Internal Medicine Advanced Heart Failure and Transplant Cardiology
DX: I50.9 Heart failure, unspecified (principal); Z79.01 Long term (current) use of anticoagulants; Z95.811 Presence of heart assist device
CPT/HCPCS: 36415; 80048; 85027; 85610

== ENCOUNTER → 2017-07-28 | Outpatient (CLI) | payer MEDICARE ==
[2017-07-28 14:50] LABS: INTERNATIONAL RATION (INR) 1.23; PROTHROMBIN TIME 16.3 SEC (11.4-15.4)
== END ==
LOC: OD 14:06
PROVIDERS: ATTEND Internal Medicine Advanced Heart Failure and Transplant Cardiology
DX: I50.9 Heart failure, unspecified (principal); Z79.01 Long term (current) use of anticoagulants; Z95.811 Presence of heart assist device
CPT/HCPCS: 36415; 85610

== ENCOUNTER → 2017-08-09 | Outpatient (CLI) | payer MEDICARE ==
[2017-08-09 12:38] LABS: HEMATOCRIT 40.2 % (37.9-51.0); MEAN CORPUSCULAR HEMOGLOBIN 29.4 pg (27.0-33.4); MEAN CORPUSCULAR HGB CONC 32.2 g/dL (32.0-36.0); MEAN CORPUSCULAR VOLUME 91 fl (80-97); PLATELET COUNT 175 10^3/uL (150-450); RED BLOOD COUNT 4.41 10^6/uL (4.35-5.55); RED CELL DISTRIBUTION WIDTH 18.1 % (11.5-14.0); WHITE BLOOD COUNT 6.5 10^3/uL (4.0-10.5)
[2017-08-09 12:50] LABS: INTERNATIONAL RATION (INR) 1.54; PROTHROMBIN TIME 19.2 SEC (11.4-15.4)
[2017-08-09 12:56] LABS: ANION GAP 11 (5-19); BLOOD UREA NITROGEN 20 mg/dL (7-20); CALCIUM 9.7 mg/dL (8.4-10.2); CARBON DIOXIDE 24 mmol/L (22-30); CHLORIDE 104 mmol/L (98-107); GLUCOSE 145 mg/dL (75-110); SODIUM 139.1 mmol/L (137-145)
== END ==
LOC: OD 11:46
PROVIDERS: ATTEND Internal Medicine Advanced Heart Failure and Transplant Cardiology
DX: I50.9 Heart failure, unspecified (principal); Z79.01 Long term (current) use of anticoagulants; Z95.811 Presence of heart assist device
CPT/HCPCS: 36415; 80048; 85027; 85610

== ENCOUNTER → 2017-08-16 | Outpatient (CLI) | payer MEDICARE ==
[2017-08-16 12:58] LABS: INTERNATIONAL RATION (INR) 2.11; PROTHROMBIN TIME 24.6 SEC (11.4-15.4)
== END ==
LOC: OD 12:20
PROVIDERS: ATTEND Internal Medicine Advanced Heart Failure and Transplant Cardiology
DX: I50.9 Heart failure, unspecified (principal); Z79.01 Long term (current) use of anticoagulants; Z95.811 Presence of heart assist device
CPT/HCPCS: 36415; 85610

== ENCOUNTER → 2017-09-06 | Outpatient (CLI) | payer MEDICARE ==
[2017-09-06 12:30] LABS: INTERNATIONAL RATION (INR) 2.43; PROTHROMBIN TIME 27.6 SEC (11.4-15.4)
[2017-09-06 12:42] LABS: ANION GAP 9 (5-19); BLOOD UREA NITROGEN 27 mg/dL (7-20); CALCIUM 10.1 mg/dL (8.4-10.2); CARBON DIOXIDE 29 mmol/L (22-30); CHLORIDE 106 mmol/L (98-107); GLUCOSE 96 mg/dL (75-110); POTASSIUM 3.8 mmol/L (3.6-5.0); SODIUM 143.9 mmol/L (137-145)
== END ==
LOC: OD 11:45
PROVIDERS: ATTEND Internal Medicine Advanced Heart Failure and Transplant Cardiology
DX: I50.9 Heart failure, unspecified (principal); Z79.01 Long term (current) use of anticoagulants; Z95.811 Presence of heart assist device
CPT/HCPCS: 36415; 80048; 85610

== ENCOUNTER → 2017-09-21 | Outpatient (CLI) | payer MEDICARE ==
[2017-09-21 12:49] LABS: INTERNATIONAL RATION (INR) 1.96; PROTHROMBIN TIME 23.3 SEC (11.4-15.4)
== END ==
LOC: OD 12:00
PROVIDERS: ATTEND Internal Medicine Advanced Heart Failure and Transplant Cardiology
DX: I50.9 Heart failure, unspecified (principal); Z79.01 Long term (current) use of anticoagulants; Z95.811 Presence of heart assist device
CPT/HCPCS: 36415; 85610

== ENCOUNTER → 2017-09-30 | Outpatient (CLI) | payer MEDICARE | LOC: OD 12:30 | PROVIDERS: ATTEND Internal Medicine Advanced Heart Failure and Transplant Cardiology | DX: Z79.01 Long term (current) use of anticoagulants (principal); Z95.811 Presence of heart assist device; I50.9 Heart failure, unspecified | CPT/HCPCS: 36415; 85610 ==

== ENCOUNTER → 2017-10-07 | Outpatient (CLI) | payer MEDICARE ==
[2017-10-07 12:24] LABS: INTERNATIONAL RATION (INR) 3.48; PROTHROMBIN TIME 36.6 SEC (11.4-15.4)
[2017-10-07 12:30] LABS: ANION GAP 10 (5-19); BLOOD UREA NITROGEN 43 mg/dL (7-20); CALCIUM 10.5 mg/dL (8.4-10.2); CARBON DIOXIDE 28 mmol/L (22-30); CHLORIDE 103 mmol/L (98-107); GLUCOSE 93 mg/dL (75-110); SODIUM 140.7 mmol/L (137-145)
== END ==
LOC: OD 11:44
PROVIDERS: ATTEND Internal Medicine Advanced Heart Failure and Transplant Cardiology
DX: I50.9 Heart failure, unspecified (principal); Z79.01 Long term (current) use of anticoagulants; Z95.811 Presence of heart assist device
CPT/HCPCS: 36415; 80048; 85610

== ENCOUNTER → 2017-10-18 | Outpatient (CLI) | payer MEDICARE ==
--- NOTE | 2017-10-18 12:36 | EKG REPORT ---
SEVERITY:- ABNORMAL ECG - ATRIAL FIBRILLATION, V-RATE 59-83 MULTIFORM VENTRICULAR PREMATURE COMPLEXES LAD, CONSIDER LEFT ANTERIOR FASCICULAR BLOCK LOW VOLTAGE IN FRONTAL LEADS : Confirmed by: Mere Bowman MD 18-Oct-2017 12:35:25
[2017-10-18 12:47] LABS: ABSOLUTE EOSINOPHILS # (AUTO) 0.1 10^3/uL (0.0-0.6); ABSOLUTE LYMPHOCYTES (AUTO) 1.4 10^3/uL (0.5-4.7); ABSOLUTE MONOCYTES (AUTO) 0.7 10^3/uL (0.1-1.4); ABSOLUTE NEUT (AUTO) 5.7 10^3/uL (1.7-8.2); BASOPHILS % (AUTO) 0.5 % (0-2); EOSINOPHILS % (AUTO) 1.5 % (0-6); HEMATOCRIT 44.9 % (37.9-51.0); HEMOGLOBIN 15.1 g/dL (13.5-17.0); LYMPHOCYTES % (AUTO) 17.6 % (13-45); MEAN CORPUSCULAR HGB CONC 33.6 g/dL (32.0-36.0); MEAN CORPUSCULAR VOLUME 92 fl (80-97); MONOCYTES % (AUTO) 8.3 % (3-13); PLATELET COUNT 189 10^3/uL (150-450); RED BLOOD COUNT 4.86 10^6/uL (4.35-5.55); RED CELL DISTRIBUTION WIDTH 16.8 % (11.5-14.0); SEGMENTED NEUTROPHILS % (AUTO) 72.1 % (42-78); TOTAL CELLS COUNTED % (AUTO) 100 %; WHITE BLOOD COUNT 7.9 10^3/uL (4.0-10.5)
[2017-10-18 13:08] LABS: ANION GAP 11 (5-19); BLOOD UREA NITROGEN 30 mg/dL (7-20); CALCIUM 10.6 mg/dL (8.4-10.2); CARBON DIOXIDE 27 mmol/L (22-30); CHLORIDE 102 mmol/L (98-107); GLUCOSE 86 mg/dL (75-110); POTASSIUM 5.1 mmol/L (3.6-5.0); SODIUM 139.7 mmol/L (137-145)
== END ==
LOC: OD 11:45 → EDSTATUS 10-22 15:30
PROVIDERS: ATTEND Otolaryngology
DX: Z01.810 Encounter for preprocedural cardiovascular examination (principal); Z01.812 Encounter for preprocedural laboratory examination; Z01.818 Encounter for other preprocedural examination; Z79.01 Long term (current) use of anticoagulants
CPT/HCPCS: 36415; 80048; 85025; 93005; 93010

== ENCOUNTER → 2017-11-04 | Outpatient (CLI) | payer MEDICARE ==
[2017-11-04 14:00] LABS: INTERNATIONAL RATION (INR) 1.55; PROTHROMBIN TIME 19.3 SEC (11.4-15.4)
== END ==
LOC: OD 12:59
PROVIDERS: ATTEND Internal Medicine Advanced Heart Failure and Transplant Cardiology
DX: I50.9 Heart failure, unspecified (principal); Z79.01 Long term (current) use of anticoagulants; Z95.811 Presence of heart assist device
CPT/HCPCS: 36415; 85610

== ENCOUNTER → 2017-11-15 | Outpatient (CLI) | payer MEDICARE ==
[2017-11-15 12:05] LABS: INTERNATIONAL RATION (INR) 1.92; PROTHROMBIN TIME 22.9 SEC (11.4-15.4)
== END ==
LOC: OD 11:25
PROVIDERS: ATTEND Internal Medicine Advanced Heart Failure and Transplant Cardiology
DX: I50.9 Heart failure, unspecified (principal); Z79.01 Long term (current) use of anticoagulants; Z95.811 Presence of heart assist device
CPT/HCPCS: 36415; 85610

== ENCOUNTER → 2017-11-22 | Outpatient (CLI) | payer MEDICARE ==
[2017-11-22 12:37] LABS: INTERNATIONAL RATION (INR) 1.82
== END ==
LOC: OD 11:37
PROVIDERS: ATTEND Internal Medicine Advanced Heart Failure and Transplant Cardiology
DX: I50.9 Heart failure, unspecified (principal); Z79.01 Long term (current) use of anticoagulants; Z95.811 Presence of heart assist device
CPT/HCPCS: 36415; 85610

== ENCOUNTER → 2017-12-13 | Outpatient (CLI) | payer MEDICARE ==
[2017-12-13 14:27] LABS: HEMATOCRIT 39.1 % (37.9-51.0); HEMOGLOBIN 13.3 g/dL (13.5-17.0); MEAN CORPUSCULAR HGB CONC 34.1 g/dL (32.0-36.0); MEAN CORPUSCULAR VOLUME 94 fl (80-97); PLATELET COUNT 150 10^3/uL (150-450); RED BLOOD COUNT 4.16 10^6/uL (4.35-5.55); RED CELL DISTRIBUTION WIDTH 16.4 % (11.5-14.0); WHITE BLOOD COUNT 6.4 10^3/uL (4.0-10.5)
[2017-12-13 14:33] LABS: INTERNATIONAL RATION (INR) 3.18; PROTHROMBIN TIME 34.1 SEC (11.4-15.4)
[2017-12-13 14:50] LABS: ANION GAP 12 (5-19); BLOOD UREA NITROGEN 23 mg/dL (7-20); CALCIUM 9.6 mg/dL (8.4-10.2); CARBON DIOXIDE 24 mmol/L (22-30); CHLORIDE 106 mmol/L (98-107); GLUCOSE 103 mg/dL (75-110); POTASSIUM 4.2 mmol/L (3.6-5.0); SODIUM 141.5 mmol/L (137-145)
== END ==
LOC: OD 13:36
PROVIDERS: ATTEND Internal Medicine Advanced Heart Failure and Transplant Cardiology
DX: I50.9 Heart failure, unspecified (principal); Z79.01 Long term (current) use of anticoagulants; Z95.811 Presence of heart assist device
CPT/HCPCS: 36415; 80048; 85027; 85610

== ENCOUNTER → 2017-12-20 | Outpatient (CLI) | payer MEDICARE ==
[2017-12-20 12:12] LABS: INTERNATIONAL RATION (INR) 1.59; PROTHROMBIN TIME 19.7 SEC (11.4-15.4)
== END ==
LOC: OD 11:31
PROVIDERS: ATTEND Internal Medicine Advanced Heart Failure and Transplant Cardiology
DX: I50.9 Heart failure, unspecified (principal); Z79.01 Long term (current) use of anticoagulants; Z95.811 Presence of heart assist device
CPT/HCPCS: 36415; 85610

== ENCOUNTER → 2018-01-03 | Outpatient (CLI) | payer MEDICARE ==
[2018-01-03 10:38] LABS: INTERNATIONAL RATION (INR) 2.41; PROTHROMBIN TIME 27.4 SEC (11.4-15.4)
== END ==
LOC: OD 09:41
PROVIDERS: ATTEND Internal Medicine Advanced Heart Failure and Transplant Cardiology
DX: I50.9 Heart failure, unspecified (principal); Z79.01 Long term (current) use of anticoagulants; Z95.811 Presence of heart assist device
CPT/HCPCS: 36415; 85610

== ENCOUNTER → 2018-01-18 | Outpatient (CLI) | payer MEDICARE ==
[2018-01-18 12:04] LABS: ABSOLUTE EOSINOPHILS # (AUTO) 0.1 10^3/uL (0.0-0.6); ABSOLUTE MONOCYTES (AUTO) 0.6 10^3/uL (0.1-1.4); BASOPHILS % (AUTO) 0.6 % (0-2); HEMATOCRIT 40.2 % (37.9-51.0); HEMOGLOBIN 13.7 g/dL (13.5-17.0); LYMPHOCYTES % (AUTO) 17.4 % (13-45); MEAN CORPUSCULAR HEMOGLOBIN 32.5 pg (27.0-33.4); MEAN CORPUSCULAR HGB CONC 34.1 g/dL (32.0-36.0); MEAN CORPUSCULAR VOLUME 95 fl (80-97); MONOCYTES % (AUTO) 10.7 % (3-13); PLATELET COUNT 155 10^3/uL (150-450); RED BLOOD COUNT 4.23 10^6/uL (4.35-5.55); RED CELL DISTRIBUTION WIDTH 14.9 % (11.5-14.0); SEGMENTED NEUTROPHILS % (AUTO) 69.3 % (42-78); TOTAL CELLS COUNTED % (AUTO) 100 %; WHITE BLOOD COUNT 5.7 10^3/uL (4.0-10.5)
[2018-01-18 12:08] LABS: INTERNATIONAL RATION (INR) 1.78; PROTHROMBIN TIME 21.6 SEC (11.4-15.4)
[2018-01-18 12:26] LABS: ANION GAP 8 (5-19); BLOOD UREA NITROGEN 31 mg/dL (7-20); CALCIUM 9.8 mg/dL (8.4-10.2); CARBON DIOXIDE 27 mmol/L (22-30); CHLORIDE 103 mmol/L (98-107); GLUCOSE 116 mg/dL (75-110); POTASSIUM 3.9 mmol/L (3.6-5.0); SODIUM 138.3 mmol/L (137-145)
== END ==
LOC: OD 11:04
PROVIDERS: ATTEND Internal Medicine Advanced Heart Failure and Transplant Cardiology
DX: I50.9 Heart failure, unspecified (principal); Z79.01 Long term (current) use of anticoagulants; Z95.811 Presence of heart assist device
CPT/HCPCS: 36415; 80048; 85025; 85610

== ENCOUNTER → 2018-02-02 | Outpatient (CLI) | payer MEDICARE ==
[2018-02-02 12:57] LABS: INTERNATIONAL RATION (INR) 1.96; PROTHROMBIN TIME 23.3 SEC (11.4-15.4)
[2018-02-02 13:07] LABS: ANION GAP 11 (5-19); BLOOD UREA NITROGEN 28 mg/dL (7-20); CALCIUM 10.1 mg/dL (8.4-10.2); CARBON DIOXIDE 31 mmol/L (22-30); CHLORIDE 98 mmol/L (98-107); GLUCOSE 112 mg/dL (75-110); POTASSIUM 3.2 mmol/L (3.6-5.0); SODIUM 139.5 mmol/L (137-145)
== END ==
LOC: OD 12:12
PROVIDERS: ATTEND Internal Medicine Advanced Heart Failure and Transplant Cardiology
DX: I50.9 Heart failure, unspecified (principal); Z79.01 Long term (current) use of anticoagulants; Z95.811 Presence of heart assist device
CPT/HCPCS: 36415; 80048; 85610

== ENCOUNTER → 2018-02-07 | Outpatient (CLI) | payer MEDICARE ==
[2018-02-07 13:59] LABS: INTERNATIONAL RATION (INR) 1.87; PROTHROMBIN TIME 22.4 SEC (11.4-15.4)
[2018-02-07 14:14] LABS: ANION GAP 10 (5-19); BLOOD UREA NITROGEN 24 mg/dL (7-20); CALCIUM 9.9 mg/dL (8.4-10.2); CARBON DIOXIDE 26 mmol/L (22-30); CHLORIDE 104 mmol/L (98-107); GLUCOSE 165 mg/dL (75-110); POTASSIUM 4.3 mmol/L (3.6-5.0); SODIUM 139.6 mmol/L (137-145)
== END ==
LOC: OD 13:08
PROVIDERS: ATTEND Internal Medicine Advanced Heart Failure and Transplant Cardiology
DX: I50.9 Heart failure, unspecified (principal); Z79.01 Long term (current) use of anticoagulants; Z95.811 Presence of heart assist device
CPT/HCPCS: 36415; 80048; 85610

== ENCOUNTER → 2018-02-15 | Outpatient (CLI) | payer MEDICARE ==
[2018-02-15 11:58] LABS: INTERNATIONAL RATION (INR) 1.51
[2018-02-15 12:22] LABS: ANION GAP 7 (5-19); BLOOD UREA NITROGEN 30 mg/dL (7-20); CARBON DIOXIDE 31 mmol/L (22-30); CHLORIDE 100 mmol/L (98-107); GLUCOSE 111 mg/dL (75-110); SODIUM 138.1 mmol/L (137-145)
== END ==
LOC: OD 11:07
PROVIDERS: ATTEND Internal Medicine Advanced Heart Failure and Transplant Cardiology
DX: I50.9 Heart failure, unspecified (principal); Z79.01 Long term (current) use of anticoagulants; Z95.811 Presence of heart assist device
CPT/HCPCS: 36415; 80048; 85610

== ENCOUNTER → 2018-03-15 | Outpatient (CLI) | payer MEDICARE ==
[2018-03-15 13:54] LABS: INTERNATIONAL RATION (INR) 1.25; PROTHROMBIN TIME 16.3 SEC (11.4-15.4)
== END ==
LOC: OD 12:43
PROVIDERS: ATTEND Internal Medicine Advanced Heart Failure and Transplant Cardiology
DX: I50.9 Heart failure, unspecified (principal); Z79.01 Long term (current) use of anticoagulants; Z95.811 Presence of heart assist device
CPT/HCPCS: 36415; 85610

== ENCOUNTER → 2018-03-21 | Outpatient (CLI) | payer MEDICARE ==
[2018-03-21 13:14] LABS: INTERNATIONAL RATION (INR) 1.42; PROTHROMBIN TIME 18.1 SEC (11.4-15.4)
[2018-03-21 13:28] LABS: ALANINE AMINOTRANSFERASE 18 U/L (21-72); ALKALINE PHOSPHATASE 74 U/L (38-126); ANION GAP 12 (5-19); ASPARTATE AMINO TRANSFERASE 31 U/L (17-59); BILIRUBIN,DIRECT 0.2 mg/dL (0.0-0.4); BLOOD UREA NITROGEN 27 mg/dL (7-20); CARBON DIOXIDE 30 mmol/L (22-30); CHLORIDE 101 mmol/L (98-107); GLUCOSE 97 mg/dL (75-110); POTASSIUM 3.8 mmol/L (3.6-5.0); SODIUM 142.6 mmol/L (137-145); TOTAL PROTEIN 7.2 g/dL (6.3-8.2)
== END ==
LOC: OD 12:05
PROVIDERS: ATTEND Nurse Practitioner Adult Health
DX: R79.89 Other specified abnormal findings of blood chemistry (principal); Z79.01 Long term (current) use of anticoagulants
CPT/HCPCS: 36415; 80053; 85610

== ENCOUNTER → 2018-03-28 | Outpatient (CLI) | payer MEDICARE ==
[2018-03-28 14:44] LABS: INTERNATIONAL RATION (INR) 2.12; PROTHROMBIN TIME 24.8 SEC (11.4-15.4)
== END ==
LOC: OD 13:44
PROVIDERS: ATTEND Internal Medicine Advanced Heart Failure and Transplant Cardiology
DX: I50.9 Heart failure, unspecified (principal); Z79.01 Long term (current) use of anticoagulants; Z95.811 Presence of heart assist device
CPT/HCPCS: 36415; 85610

== ENCOUNTER → 2018-04-13 | Outpatient (CLI) | payer MEDICARE ==
[2018-04-13 11:24] LABS: INTERNATIONAL RATION (INR) 1.38; PROTHROMBIN TIME 17.7 SEC (11.4-15.4)
[2018-04-13 11:39] LABS: ANION GAP 8 (5-19); BLOOD UREA NITROGEN 28 mg/dL (7-20); CALCIUM 9.8 mg/dL (8.4-10.2); CARBON DIOXIDE 29 mmol/L (22-30); CHLORIDE 103 mmol/L (98-107); GLUCOSE 139 mg/dL (75-110); POTASSIUM 3.4 mmol/L (3.6-5.0); SODIUM 139.9 mmol/L (137-145)
== END ==
LOC: OD 10:50
PROVIDERS: ATTEND Internal Medicine Advanced Heart Failure and Transplant Cardiology
DX: I50.9 Heart failure, unspecified (principal); Z79.01 Long term (current) use of anticoagulants; Z95.811 Presence of heart assist device
CPT/HCPCS: 36415; 80048; 85610

== ENCOUNTER → 2018-04-21 | Outpatient (CLI) | payer MEDICARE ==
[2018-04-21 13:28] LABS: INTERNATIONAL RATION (INR) 1.18; PROTHROMBIN TIME 15.6 SEC (11.4-15.4)
== END ==
LOC: OD 12:46
PROVIDERS: ATTEND Internal Medicine Advanced Heart Failure and Transplant Cardiology
DX: I50.9 Heart failure, unspecified (principal); Z79.01 Long term (current) use of anticoagulants; Z95.811 Presence of heart assist device
CPT/HCPCS: 36415; 85610

== ENCOUNTER → 2018-04-25 | Outpatient (CLI) | payer MEDICARE ==
[2018-04-25 14:30] LABS: INTERNATIONAL RATION (INR) 1.47; PROTHROMBIN TIME 18.6 SEC (11.4-15.4)
== END ==
LOC: OD 13:48
PROVIDERS: ATTEND Internal Medicine Advanced Heart Failure and Transplant Cardiology
DX: I50.9 Heart failure, unspecified (principal); Z79.01 Long term (current) use of anticoagulants; Z95.811 Presence of heart assist device
CPT/HCPCS: 36415; 85610

== ENCOUNTER → 2018-04-28 | Outpatient (CLI) | payer MEDICARE ==
[2018-04-28 13:52] LABS: HEMATOCRIT 44.5 % (37.9-51.0); HEMOGLOBIN 14.9 g/dL (13.5-17.0); MEAN CORPUSCULAR HEMOGLOBIN 30.9 pg (27.0-33.4); MEAN CORPUSCULAR HGB CONC 33.5 g/dL (32.0-36.0); MEAN CORPUSCULAR VOLUME 92 fl (80-97); PLATELET COUNT 148 10^3/uL (150-450); RED BLOOD COUNT 4.83 10^6/uL (4.35-5.55); RED CELL DISTRIBUTION WIDTH 16.7 % (11.5-14.0); WHITE BLOOD COUNT 6.3 10^3/uL (4.0-10.5)
[2018-04-28 14:00] LABS: INTERNATIONAL RATION (INR) 1.04; PROTHROMBIN TIME 14.1 SEC (11.4-15.4)
[2018-04-28 14:16] LABS: ANION GAP 11 (5-19); BLOOD UREA NITROGEN 31 mg/dL (7-20); CALCIUM 9.8 mg/dL (8.4-10.2); CARBON DIOXIDE 31 mmol/L (22-30); CHLORIDE 96 mmol/L (98-107); GLUCOSE 159 mg/dL (75-110); POTASSIUM 3.1 mmol/L (3.6-5.0); SODIUM 137.7 mmol/L (137-145)
== END ==
LOC: OD 13:23
PROVIDERS: ATTEND Internal Medicine Advanced Heart Failure and Transplant Cardiology
DX: I50.9 Heart failure, unspecified (principal); Z79.01 Long term (current) use of anticoagulants; Z95.811 Presence of heart assist device
CPT/HCPCS: 36415; 80048; 85027; 85610

== ENCOUNTER → 2018-05-02 | Outpatient (CLI) | payer MEDICARE ==
[2018-05-02 15:15] LABS: ANION GAP 5 (5-19); BLOOD UREA NITROGEN 24 mg/dL (7-20); CALCIUM 10.1 mg/dL (8.4-10.2); CARBON DIOXIDE 33 mmol/L (22-30); CHLORIDE 101 mmol/L (98-107); GLUCOSE 98 mg/dL (75-110); POTASSIUM 3.8 mmol/L (3.6-5.0); SODIUM 138.7 mmol/L (137-145)
[2018-05-02 15:32] LABS: INTERNATIONAL RATION (INR) 1.37; PROTHROMBIN TIME 17.6 SEC (11.4-15.4)
== END ==
LOC: OD 14:26
PROVIDERS: ATTEND Internal Medicine Advanced Heart Failure and Transplant Cardiology
DX: I50.9 Heart failure, unspecified (principal); Z79.01 Long term (current) use of anticoagulants; Z95.811 Presence of heart assist device
CPT/HCPCS: 36415; 80048; 85610

== ENCOUNTER → 2018-05-18 | Outpatient (CLI) | payer MEDICARE ==
[2018-05-18 12:26] LABS: INTERNATIONAL RATION (INR) 1.72
[2018-05-18 12:50] LABS: ANION GAP 7 (5-19); BLOOD UREA NITROGEN 33 mg/dL (7-20); CALCIUM 9.8 mg/dL (8.4-10.2); CARBON DIOXIDE 30 mmol/L (22-30); CHLORIDE 99 mmol/L (98-107); GLUCOSE 164 mg/dL (75-110); POTASSIUM 3.7 mmol/L (3.6-5.0); SODIUM 136.3 mmol/L (137-145); URIC ACID 12.8 mg/dL (3.5-8.5)
== END ==
LOC: OD 11:45
PROVIDERS: ATTEND Internal Medicine Advanced Heart Failure and Transplant Cardiology
DX: I50.9 Heart failure, unspecified (principal); Z79.01 Long term (current) use of anticoagulants; Z95.811 Presence of heart assist device
CPT/HCPCS: 36415; 80048; 84550; 85610

== ENCOUNTER → 2018-05-25 | Outpatient (CLI) | payer MEDICARE ==
[2018-05-25 13:10] LABS: INTERNATIONAL RATION (INR) 1.31; PROTHROMBIN TIME 16.9 SEC (11.4-15.4)
[2018-05-25 13:27] LABS: ANION GAP 11 (5-19); BLOOD UREA NITROGEN 31 mg/dL (7-20); CARBON DIOXIDE 25 mmol/L (22-30); CHLORIDE 101 mmol/L (98-107); GLUCOSE 150 mg/dL (75-110); POTASSIUM 3.7 mmol/L (3.6-5.0)
== END ==
LOC: OD 12:23
PROVIDERS: ATTEND Internal Medicine Advanced Heart Failure and Transplant Cardiology
DX: I50.9 Heart failure, unspecified (principal); Z79.01 Long term (current) use of anticoagulants; Z95.811 Presence of heart assist device
CPT/HCPCS: 36415; 80048; 85610

== ENCOUNTER → 2018-05-30 | Outpatient (CLI) | payer MEDICARE ==
[2018-05-30 15:18] LABS: INTERNATIONAL RATION (INR) 1.07; PROTHROMBIN TIME 14.4 SEC (11.4-15.4)
[2018-05-30 15:32] LABS: ANION GAP 14 (5-19); BLOOD UREA NITROGEN 50 mg/dL (7-20); CALCIUM 9.8 mg/dL (8.4-10.2); CARBON DIOXIDE 29 mmol/L (22-30); CHLORIDE 96 mmol/L (98-107); GLUCOSE 117 mg/dL (75-110); POTASSIUM 3.3 mmol/L (3.6-5.0); SODIUM 139.3 mmol/L (137-145)
== END ==
LOC: OD 14:22
PROVIDERS: ATTEND Internal Medicine Advanced Heart Failure and Transplant Cardiology
DX: I50.9 Heart failure, unspecified (principal); Z79.01 Long term (current) use of anticoagulants; Z95.811 Presence of heart assist device
CPT/HCPCS: 36415; 80048; 85610

== ENCOUNTER → 2018-06-22 | Outpatient (CLI) | payer MEDICARE ==
[2018-06-22 11:37] LABS: INTERNATIONAL RATION (INR) 1.78; PROTHROMBIN TIME 21.6 SEC (11.4-15.4)
[2018-06-22 12:02] LABS: ANION GAP 11 (5-19); BLOOD UREA NITROGEN 35 mg/dL (7-20); CALCIUM 10.2 mg/dL (8.4-10.2); CARBON DIOXIDE 28 mmol/L (22-30); CHLORIDE 99 mmol/L (98-107); GLUCOSE 116 mg/dL (75-110); POTASSIUM 3.3 mmol/L (3.6-5.0); SODIUM 137.7 mmol/L (137-145)
== END ==
LOC: OD 10:59
PROVIDERS: ATTEND Internal Medicine Advanced Heart Failure and Transplant Cardiology
DX: I50.9 Heart failure, unspecified (principal); Z79.01 Long term (current) use of anticoagulants; Z95.811 Presence of heart assist device
CPT/HCPCS: 36415; 80048; 85610

== ENCOUNTER → 2018-07-04 | Outpatient (CLI) | payer MEDICARE ==
[2018-07-04 12:45] LABS: INTERNATIONAL RATION (INR) 2.91; PROTHROMBIN TIME 31.8 SEC (11.4-15.4)
[2018-07-04 13:04] LABS: ANION GAP 11 (5-19); BLOOD UREA NITROGEN 38 mg/dL (7-20); CALCIUM 9.8 mg/dL (8.4-10.2); CARBON DIOXIDE 22 mmol/L (22-30); CHLORIDE 104 mmol/L (98-107); GLUCOSE 139 mg/dL (75-110); POTASSIUM 3.8 mmol/L (3.6-5.0); SODIUM 137.1 mmol/L (137-145)
== END ==
LOC: OD 11:31
PROVIDERS: ATTEND Internal Medicine Advanced Heart Failure and Transplant Cardiology
DX: I50.9 Heart failure, unspecified (principal); Z79.01 Long term (current) use of anticoagulants; Z95.811 Presence of heart assist device
CPT/HCPCS: 36415; 80048; 85610

== ENCOUNTER → 2018-07-13 | Outpatient (CLI) | payer MEDICARE ==
[2018-07-13 13:23] LABS: PROTHROMBIN TIME 20.8 SEC (11.4-15.4)
[2018-07-13 13:36] LABS: ANION GAP 11 (5-19); BLOOD UREA NITROGEN 33 mg/dL (7-20); CALCIUM 10.2 mg/dL (8.4-10.2); CARBON DIOXIDE 27 mmol/L (22-30); CHLORIDE 102 mmol/L (98-107); GLUCOSE 153 mg/dL (75-110); POTASSIUM 4.3 mmol/L (3.6-5.0); SODIUM 139.8 mmol/L (137-145)
== END ==
LOC: OD 11:57
PROVIDERS: ATTEND Internal Medicine Advanced Heart Failure and Transplant Cardiology
DX: I50.9 Heart failure, unspecified (principal); Z79.01 Long term (current) use of anticoagulants; Z95.811 Presence of heart assist device
CPT/HCPCS: 36415; 80048; 85610

== ENCOUNTER → 2018-07-28 | Outpatient (CLI) | payer MEDICARE ==
[2018-07-28 16:03] LABS: INTERNATIONAL RATION (INR) 1.29; PROTHROMBIN TIME 16.8 SEC (11.4-15.4)
[2018-07-28 16:21] LABS: ANION GAP 9 (5-19); BLOOD UREA NITROGEN 32 mg/dL (7-20); CALCIUM 10.4 mg/dL (8.4-10.2); CARBON DIOXIDE 27 mmol/L (22-30); CHLORIDE 102 mmol/L (98-107); GLUCOSE 109 mg/dL (75-110); POTASSIUM 4.1 mmol/L (3.6-5.0); SODIUM 137.5 mmol/L (137-145)
== END ==
LOC: OD 14:56
PROVIDERS: ATTEND Internal Medicine Advanced Heart Failure and Transplant Cardiology
DX: I50.9 Heart failure, unspecified (principal); Z79.01 Long term (current) use of anticoagulants; Z95.811 Presence of heart assist device
CPT/HCPCS: 36415; 80048; 85610

== ENCOUNTER → 2018-08-01 | Outpatient (CLI) | payer MEDICARE ==
[2018-08-01 13:22] LABS: INTERNATIONAL RATION (INR) 2.06; PROTHROMBIN TIME 24.2 SEC (11.4-15.4)
[2018-08-01 13:40] LABS: ANION GAP 10 (5-19); BLOOD UREA NITROGEN 31 mg/dL (7-20); CALCIUM 10.2 mg/dL (8.4-10.2); CARBON DIOXIDE 27 mmol/L (22-30); CHLORIDE 101 mmol/L (98-107); GLUCOSE 143 mg/dL (75-110); POTASSIUM 3.8 mmol/L (3.6-5.0); SODIUM 137.8 mmol/L (137-145)
== END ==
LOC: OD 12:11
PROVIDERS: ATTEND Internal Medicine Advanced Heart Failure and Transplant Cardiology
DX: I50.9 Heart failure, unspecified (principal); Z79.01 Long term (current) use of anticoagulants; Z95.811 Presence of heart assist device
CPT/HCPCS: 36415; 80048; 85610

== ENCOUNTER → 2018-08-09 | Outpatient (CLI) | payer MEDICARE ==
[2018-08-09 11:47] LABS: INTERNATIONAL RATION (INR) 2.33; PROTHROMBIN TIME 26.7 SEC (11.4-15.4)
[2018-08-09 12:10] LABS: ANION GAP 8 (5-19); BLOOD UREA NITROGEN 35 mg/dL (7-20); CALCIUM 10.5 mg/dL (8.4-10.2); CARBON DIOXIDE 29 mmol/L (22-30); CHLORIDE 100 mmol/L (98-107); GLUCOSE 148 mg/dL (75-110); POTASSIUM 3.3 mmol/L (3.6-5.0); SODIUM 136.5 mmol/L (137-145)
== END ==
LOC: OD 11:19
PROVIDERS: ATTEND Internal Medicine Advanced Heart Failure and Transplant Cardiology
DX: I50.9 Heart failure, unspecified (principal); Z79.01 Long term (current) use of anticoagulants; Z95.811 Presence of heart assist device
CPT/HCPCS: 36415; 80048; 85610

== ENCOUNTER → 2018-08-24 | Outpatient (CLI) | payer MEDICARE ==
[2018-08-24 13:15] LABS: INTERNATIONAL RATION (INR) 2.98; PROTHROMBIN TIME 32.3 SEC (11.4-15.4)
[2018-08-24 13:29] LABS: ANION GAP 12 (5-19); BLOOD UREA NITROGEN 39 mg/dL (7-20); CARBON DIOXIDE 26 mmol/L (22-30); CHLORIDE 103 mmol/L (98-107); GLUCOSE 106 mg/dL (75-110); POTASSIUM 4.3 mmol/L (3.6-5.0); SODIUM 140.5 mmol/L (137-145)
== END ==
LOC: OD 12:36
PROVIDERS: ATTEND Internal Medicine Advanced Heart Failure and Transplant Cardiology
DX: I50.9 Heart failure, unspecified (principal); Z79.01 Long term (current) use of anticoagulants; Z95.811 Presence of heart assist device
CPT/HCPCS: 36415; 80048; 85610

== ENCOUNTER → 2018-09-07 | Outpatient (CLI) | payer MEDICARE ==
[2018-09-07 13:21] LABS: INTERNATIONAL RATION (INR) 1.68; PROTHROMBIN TIME 20.6 SEC (11.4-15.4)
[2018-09-07 13:39] LABS: ANION GAP 11 (5-19); BLOOD UREA NITROGEN 61 mg/dL (7-20); CARBON DIOXIDE 29 mmol/L (22-30); CHLORIDE 99 mmol/L (98-107); GLUCOSE 123 mg/dL (75-110); POTASSIUM 3.8 mmol/L (3.6-5.0); SODIUM 138.9 mmol/L (137-145)
== END ==
LOC: OD 12:29
PROVIDERS: ATTEND Internal Medicine Advanced Heart Failure and Transplant Cardiology
DX: I50.9 Heart failure, unspecified (principal); Z79.01 Long term (current) use of anticoagulants; Z95.811 Presence of heart assist device
CPT/HCPCS: 36415; 80048; 85610

== ENCOUNTER → 2018-09-15 | Outpatient (CLI) | payer MEDICARE ==
[2018-09-15 14:20] LABS: INTERNATIONAL RATION (INR) 2.22; PROTHROMBIN TIME 25.7 SEC (11.4-15.4)
[2018-09-15 14:22] LABS: ANION GAP 9 (5-19); BLOOD UREA NITROGEN 35 mg/dL (7-20); CALCIUM 9.8 mg/dL (8.4-10.2); CARBON DIOXIDE 28 mmol/L (22-30); CHLORIDE 105 mmol/L (98-107); GLUCOSE 92 mg/dL (75-110); POTASSIUM 4.1 mmol/L (3.6-5.0); SODIUM 141.8 mmol/L (137-145)
== END ==
LOC: OD 12:38
PROVIDERS: ATTEND Internal Medicine Advanced Heart Failure and Transplant Cardiology
DX: I50.9 Heart failure, unspecified (principal); Z79.01 Long term (current) use of anticoagulants; Z95.811 Presence of heart assist device
CPT/HCPCS: 36415; 80048; 85610

== ENCOUNTER → 2018-09-28 | Outpatient (CLI) | payer MEDICARE ==
[2018-09-28 12:43] LABS: INTERNATIONAL RATION (INR) 2.16; PROTHROMBIN TIME 25.1 SEC (11.4-15.4)
[2018-09-28 13:02] LABS: ANION GAP 9 (5-19); BLOOD UREA NITROGEN 45 mg/dL (7-20); CALCIUM 10.3 mg/dL (8.4-10.2); CARBON DIOXIDE 27 mmol/L (22-30); CHLORIDE 103 mmol/L (98-107); CHOLESTEROL 200.72 mg/dL (0-200); GLUCOSE 93 mg/dL (75-110); POTASSIUM 4.5 mmol/L (3.6-5.0); SODIUM 138.7 mmol/L (137-145); TRIGLYCERIDES 215 mg/dL (<150)
[2018-09-28 13:12] LABS: DIRECT LDL 78 mg/dL (<100)
== END ==
LOC: OD 11:57
PROVIDERS: ATTEND Internal Medicine Advanced Heart Failure and Transplant Cardiology
DX: Z79.01 Long term (current) use of anticoagulants (principal); I50.9 Heart failure, unspecified; Z95.811 Presence of heart assist device
CPT/HCPCS: 36415; 80048; 80061; 85610

== ENCOUNTER → 2018-10-26 | Outpatient (CLI) | payer MEDICARE ==
[2018-10-26 16:06] LABS: INTERNATIONAL RATION (INR) 2.17; PROTHROMBIN TIME 24.5 SEC (11.4-15.4)
== END ==
LOC: OD 15:06
PROVIDERS: ATTEND Internal Medicine Advanced Heart Failure and Transplant Cardiology
DX: Z79.01 Long term (current) use of anticoagulants (principal); I50.9 Heart failure, unspecified; Z95.811 Presence of heart assist device
CPT/HCPCS: 36415; 85610

== ENCOUNTER → 2018-11-16 | Outpatient (CLI) | payer MEDICARE ==
[2018-11-16 15:28] LABS: HEMATOCRIT 35.7 % (37.9-51.0); HEMOGLOBIN 12.1 g/dL (13.5-17.0); MEAN CORPUSCULAR HEMOGLOBIN 33.6 pg (27.0-33.4); MEAN CORPUSCULAR HGB CONC 33.9 g/dL (32.0-36.0); MEAN CORPUSCULAR VOLUME 99 fl (80-97); PLATELET COUNT 158 10^3/uL (150-450); RED BLOOD COUNT 3.61 10^6/uL (4.35-5.55); WHITE BLOOD COUNT 6.3 10^3/uL (4.0-10.5)
[2018-11-16 15:33] LABS: PROTHROMBIN TIME 15.2 SEC (11.4-15.4)
[2018-11-16 15:47] LABS: ANION GAP 10 (5-19); BLOOD UREA NITROGEN 25 mg/dL (7-20); CALCIUM 9.5 mg/dL (8.4-10.2); CARBON DIOXIDE 26 mmol/L (22-30); CHLORIDE 104 mmol/L (98-107); GLUCOSE 175 mg/dL (75-110); POTASSIUM 3.5 mmol/L (3.6-5.0)
== END ==
LOC: OD 14:57
PROVIDERS: ATTEND Internal Medicine Advanced Heart Failure and Transplant Cardiology
DX: I50.9 Heart failure, unspecified (principal); Z79.01 Long term (current) use of anticoagulants; Z95.811 Presence of heart assist device
CPT/HCPCS: 36415; 80048; 85027; 85610

== ENCOUNTER → 2018-11-23 | Outpatient (CLI) | payer MEDICARE ==
[2018-11-23 12:30] LABS: INTERNATIONAL RATION (INR) 1.65; PROTHROMBIN TIME 19.7 SEC (11.4-15.4)
[2018-11-23 12:45] LABS: ANION GAP 11 (5-19); BLOOD UREA NITROGEN 59 mg/dL (7-20); CALCIUM 9.4 mg/dL (8.4-10.2); CARBON DIOXIDE 27 mmol/L (22-30); CHLORIDE 100 mmol/L (98-107); GLUCOSE 157 mg/dL (75-110); POTASSIUM 3.5 mmol/L (3.6-5.0)
== END ==
LOC: OD 11:32
PROVIDERS: ATTEND Internal Medicine Advanced Heart Failure and Transplant Cardiology
DX: I50.9 Heart failure, unspecified (principal); Z79.01 Long term (current) use of anticoagulants; Z95.811 Presence of heart assist device
CPT/HCPCS: 36415; 80048; 85610

== ENCOUNTER → 2018-12-05 | Outpatient (CLI) | payer MEDICARE ==
[2018-12-05 11:05] LABS: INTERNATIONAL RATION (INR) 1.95; PROTHROMBIN TIME 22.6 SEC (11.4-15.4)
[2018-12-05 11:24] LABS: ANION GAP 14 (5-19); BLOOD UREA NITROGEN 55 mg/dL (7-20); CALCIUM 10.1 mg/dL (8.4-10.2); CARBON DIOXIDE 25 mmol/L (22-30); CHLORIDE 98 mmol/L (98-107); GLUCOSE 171 mg/dL (75-110); POTASSIUM 4.3 mmol/L (3.6-5.0)
== END ==
LOC: OD 10:31
PROVIDERS: ATTEND Internal Medicine Advanced Heart Failure and Transplant Cardiology
DX: I50.9 Heart failure, unspecified (principal); Z79.01 Long term (current) use of anticoagulants; Z95.811 Presence of heart assist device
CPT/HCPCS: 36415; 80048; 85610

== ENCOUNTER → 2018-12-15 | Outpatient (CLI) | payer MEDICARE ==
[2018-12-15 11:30] LABS: INTERNATIONAL RATION (INR) 2.35; PROTHROMBIN TIME 26.2 SEC (11.4-15.4)
[2018-12-15 11:40] LABS: HEMATOCRIT 41.4 % (37.9-51.0); MEAN CORPUSCULAR HEMOGLOBIN 32.1 pg (27.0-33.4); MEAN CORPUSCULAR HGB CONC 33.7 g/dL (32.0-36.0); MEAN CORPUSCULAR VOLUME 95 fl (80-97); PLATELET COUNT 123 10^3/uL (150-450); RED BLOOD COUNT 4.36 10^6/uL (4.35-5.55); RED CELL DISTRIBUTION WIDTH 14.7 % (11.5-14.0); WHITE BLOOD COUNT 5.4 10^3/uL (4.0-10.5)
[2018-12-15 11:47] LABS: ANION GAP 6 (5-19); BLOOD UREA NITROGEN 28 mg/dL (7-20); CALCIUM 9.6 mg/dL (8.4-10.2); CARBON DIOXIDE 27 mmol/L (22-30); CHLORIDE 104 mmol/L (98-107); GLUCOSE 106 mg/dL (75-110); POTASSIUM 4.2 mmol/L (3.6-5.0)
== END ==
LOC: OD 10:55
PROVIDERS: ATTEND Internal Medicine Advanced Heart Failure and Transplant Cardiology
DX: I50.9 Heart failure, unspecified (principal); Z79.01 Long term (current) use of anticoagulants; Z95.811 Presence of heart assist device
CPT/HCPCS: 36415; 80048; 85027; 85610

== ENCOUNTER → 2018-12-23 | Outpatient (CLI) | payer MEDICARE ==
[2018-12-23 11:04] LABS: INTERNATIONAL RATION (INR) 1.99; PROTHROMBIN TIME 22.9 SEC (11.4-15.4)
== END ==
LOC: OD 10:17
PROVIDERS: ATTEND Internal Medicine Advanced Heart Failure and Transplant Cardiology
DX: I50.9 Heart failure, unspecified (principal); Z79.01 Long term (current) use of anticoagulants; Z95.811 Presence of heart assist device
CPT/HCPCS: 36415; 85610

== ENCOUNTER → 2019-01-25 | Outpatient (CLI) | payer MEDICARE ==
[2019-01-25 13:16] LABS: INTERNATIONAL RATION (INR) 1.71; PROTHROMBIN TIME 20.3 SEC (11.4-15.4)
[2019-01-25 13:24] LABS: ANION GAP 8 (5-19); BLOOD UREA NITROGEN 24 mg/dL (7-20); CALCIUM 9.8 mg/dL (8.4-10.2); CARBON DIOXIDE 25 mmol/L (22-30); CHLORIDE 104 mmol/L (98-107); GLUCOSE 95 mg/dL (75-110); POTASSIUM 4.2 mmol/L (3.6-5.0)
== END ==
LOC: OD 12:25
PROVIDERS: ATTEND Internal Medicine Advanced Heart Failure and Transplant Cardiology
DX: I50.9 Heart failure, unspecified (principal); Z79.01 Long term (current) use of anticoagulants; Z95.811 Presence of heart assist device
CPT/HCPCS: 36415; 80048; 85610

== ENCOUNTER → 2019-02-22 | Outpatient (CLI) | payer MEDICARE ==
[2019-02-22 15:22] LABS: ANION GAP 12 (5-19); BLOOD UREA NITROGEN 34 mg/dL (7-20); CALCIUM 10.1 mg/dL (8.4-10.2); CARBON DIOXIDE 21 mmol/L (22-30); CHLORIDE 107 mmol/L (98-107); GLUCOSE 149 mg/dL (75-110); POTASSIUM 4.7 mmol/L (3.6-5.0); PROTHROMBIN TIME 19.2 SEC (11.4-15.4)
== END ==
LOC: OD 14:32
PROVIDERS: ATTEND Internal Medicine Advanced Heart Failure and Transplant Cardiology
DX: I50.9 Heart failure, unspecified (principal); Z79.01 Long term (current) use of anticoagulants; Z95.811 Presence of heart assist device
CPT/HCPCS: 36415; 80048; 85610

== ENCOUNTER → 2019-03-02 | Outpatient (CLI) | payer MEDICARE ==
[2019-03-02 15:44] LABS: INTERNATIONAL RATION (INR) 2.11
[2019-03-02 15:52] LABS: ANION GAP 10 (5-19); BLOOD UREA NITROGEN 32 mg/dL (7-20); CALCIUM 10.4 mg/dL (8.4-10.2); CARBON DIOXIDE 22 mmol/L (22-30); CHLORIDE 108 mmol/L (98-107); GLUCOSE 80 mg/dL (75-110); POTASSIUM 5.1 mmol/L (3.6-5.0)
== END ==
LOC: OD 14:58
PROVIDERS: ATTEND Internal Medicine Advanced Heart Failure and Transplant Cardiology
DX: I50.9 Heart failure, unspecified (principal); Z79.01 Long term (current) use of anticoagulants; Z95.811 Presence of heart assist device
CPT/HCPCS: 36415; 80048; 85610

== ENCOUNTER → 2019-03-15 | Outpatient (CLI) | payer MEDICARE ==
[2019-03-15 09:42] LABS: INTERNATIONAL RATION (INR) 2.11
[2019-03-15 09:58] LABS: ANION GAP 10 (5-19); BLOOD UREA NITROGEN 36 mg/dL (7-20); CALCIUM 10.3 mg/dL (8.4-10.2); CARBON DIOXIDE 29 mmol/L (22-30); CHLORIDE 102 mmol/L (98-107); GLUCOSE 102 mg/dL (75-110); POTASSIUM 4.1 mmol/L (3.6-5.0)
== END ==
LOC: OD 08:52
PROVIDERS: ATTEND Internal Medicine Advanced Heart Failure and Transplant Cardiology
DX: I50.9 Heart failure, unspecified (principal); Z79.01 Long term (current) use of anticoagulants; Z95.811 Presence of heart assist device
CPT/HCPCS: 36415; 80048; 85610

== ENCOUNTER → 2019-04-17 | Outpatient (CLI) | payer MEDICARE ==
[2019-04-17 13:56] LABS: INTERNATIONAL RATION (INR) 1.85; PROTHROMBIN TIME 21.6 SEC (11.4-15.4)
[2019-04-17 14:16] LABS: ANION GAP 12 (5-19); BLOOD UREA NITROGEN 36 mg/dL (7-20); CALCIUM 10.3 mg/dL (8.4-10.2); CARBON DIOXIDE 26 mmol/L (22-30); CHLORIDE 99 mmol/L (98-107); GLUCOSE 75 mg/dL (75-110); POTASSIUM 4.2 mmol/L (3.6-5.0)
== END ==
LOC: OD 13:23
PROVIDERS: ATTEND Internal Medicine Advanced Heart Failure and Transplant Cardiology
DX: I50.9 Heart failure, unspecified (principal); Z79.01 Long term (current) use of anticoagulants; Z95.811 Presence of heart assist device
CPT/HCPCS: 36415; 80048; 85610

== ENCOUNTER → 2019-04-27 | Outpatient (CLI) | payer MEDICARE ==
[2019-04-27 15:03] LABS: PROTHROMBIN TIME 34.3 SEC (11.4-15.4)
[2019-04-27 15:10] LABS: ANION GAP 9 (5-19); BLOOD UREA NITROGEN 37 mg/dL (7-20); CALCIUM 9.9 mg/dL (8.4-10.2); CARBON DIOXIDE 27 mmol/L (22-30); CHLORIDE 104 mmol/L (98-107); GLUCOSE 89 mg/dL (75-110); POTASSIUM 4.1 mmol/L (3.6-5.0)
== END ==
LOC: OD 14:16
PROVIDERS: ATTEND Internal Medicine Advanced Heart Failure and Transplant Cardiology
DX: Z95.811 Presence of heart assist device (principal); Z79.01 Long term (current) use of anticoagulants; I50.9 Heart failure, unspecified
CPT/HCPCS: 36415; 80048; 85610

== ENCOUNTER → 2019-05-11 | Outpatient (CLI) | payer MEDICARE ==
[2019-05-11 14:59] LABS: INTERNATIONAL RATION (INR) 3.66; PROTHROMBIN TIME 37.3 SEC (11.4-15.4)
[2019-05-11 15:16] LABS: ANION GAP 11 (5-19); BLOOD UREA NITROGEN 44 mg/dL (7-20); CALCIUM 10.3 mg/dL (8.4-10.2); CARBON DIOXIDE 23 mmol/L (22-30); CHLORIDE 101 mmol/L (98-107); GLUCOSE 96 mg/dL (75-110); POTASSIUM 5.1 mmol/L (3.6-5.0)
== END ==
LOC: OD 14:19
PROVIDERS: ATTEND Internal Medicine Advanced Heart Failure and Transplant Cardiology
DX: I50.9 Heart failure, unspecified (principal); Z79.01 Long term (current) use of anticoagulants; Z95.811 Presence of heart assist device
CPT/HCPCS: 36415; 80048; 85610

== ENCOUNTER → 2019-05-18 | Outpatient (CLI) | payer MEDICARE ==
[2019-05-18 11:46] LABS: INTERNATIONAL RATION (INR) 2.58; PROTHROMBIN TIME 28.2 SEC (11.4-15.4)
[2019-05-18 12:11] LABS: ANION GAP 9 (5-19); BLOOD UREA NITROGEN 33 mg/dL (7-20); CALCIUM 10.4 mg/dL (8.4-10.2); CARBON DIOXIDE 27 mmol/L (22-30); CHLORIDE 102 mmol/L (98-107); GLUCOSE 110 mg/dL (75-110); POTASSIUM 4.4 mmol/L (3.6-5.0)
== END ==
LOC: OD 11:16
PROVIDERS: ATTEND Internal Medicine Advanced Heart Failure and Transplant Cardiology
DX: I50.9 Heart failure, unspecified (principal); Z79.01 Long term (current) use of anticoagulants; Z95.811 Presence of heart assist device
CPT/HCPCS: 36415; 80048; 85610

== ENCOUNTER 2019-05-22 09:37 | Emergency (ER) | payer MEDICARE ==
--- NOTE | 2019-05-22 09:49 | ER Document Report ---
ED General - General Stated Complaint: FALL/HIP PAIN Time Seen by Provider: 05/22/19 09:44 Primary Care Provider: TANA GUERRA MD [Primary Care Provider] - Follow up as needed Notes: 73-year-old man with a history of LVAD presents with altered mental status left hip deformity and fall. Blood thinners present. Fell yesterday, no call was made. Today with found on the floor altered with left hip shortening. Patient cannot give history. Per EMS was hypotensive with elevated lactic and left hip rotation. TRAVEL OUTSIDE OF THE [place] IN LAST 30 DAYS: No - Related Data Allergies/Adverse Reactions: prazosin [Prazosin] Adverse Reaction (Verified 10/18/17 11:09) Heart Palpitations Past Medical History - Social History Smoking Status: Unknown if Ever Smoked Family History: Reviewed & Not Pertinent - Past Medical History Cardiac Medical History: Reports: Hx Atrial Fibrillation, Hx Congestive Heart Failure, Hx Coronary Artery Disease, Hx Heart Attack - 01/2012, Hx Hypercholesterolemia, Hx Hypertension Pulmonary Medical History: Reports: Hx Pneumonia Denies: Hx Tuberculosis Neurological Medical History: Denies: Hx Cerebrovascular Accident, Hx Seizures Renal/ Medical History: Reports: Hx Kidney Stones. Denies: Hx Peritoneal Dialysis Musculoskeletal Medical History: Reports Hx Arthritis Psychiatric Medical History: Denies: Hx Depression Past Surgical History: Reports: Hx Abdominal Surgery - hernia x4, Hx Cardiac Catheterization, Hx Cardiac Surgery - LVAD, Hx Coronary Stent, Hx Genitourinary Surgery - prostate surgery, Hx Internal Defibrillator, Hx Orthopedic Surgery - bilateral hips, left knee, Hx Pacemaker - 2004, Hx Tonsillectomy, Other - LVAD - Immunizations Hx Diphtheria, Pertussis, Tetanus Vaccination: Yes Hx Pneumococcal Vaccination: 02/24/17 Review of Systems - Review of Systems Notes: REVIEW OF SYSTEMS Mental status PHYSICAL EXAMINATION General: Ill Head: Atraumatic, normocephalic ENT: Mouth normal, oropharynx moist, no exudates or tonsillar enlargement Eyes: Conjunctiva normal, pupils equal, lids normal Neck: No JVD, supple, no guarding CVS: Pulse. LVAD hum present, good peripheral perfusion Resp: No resp distress, equal and normal breath sounds bilaterally GI: Nondistended, soft, no tenderness to palpation, no rebound or guarding Ext: Left hip deformity Back: No CVA or midline TTP Skin: No rash, warm Lymphatic: No lymphadeopathy noted Neuro: Eyes closed. Speaks gibberish. Not follow commands.. Physical Exam - Vital signs Vitals: Pulse Ox 99 05/22/19 09:43 Course - Re-evaluation Re-evalutation: 05/22/19 09:48 Critically ill 73-year-old man with blood thinners LVAD altered mental status after fall Obvious left hip injury Differential includes infection head bleed cardiogenic shock We will check rectal temp draw labs and take straight to CT for head C-spine and return for pelvis x-ray. If febrile will give antibiotics 05/22/19 11:09 CT no bleed.? Right-sided ischemic stroke Reevaluated patient: Face is symmetric no gross pronator drift. Encephalopathic so exam difficult. I personally took the Doppler blood pressure pulse x2 but I got a systolic about 95she does have some biphasic systolic and diastolic flow despite having a ventricular assist device. I have ordered Rocephin and vancomycin to cover for sepsis Patient's x-ray shows a left hip dislocationat this point I feel like this is the least of his worries and sedation would be dangerous, given his prosthetic he has some time. Discussed with [facility] at 11 AM. Accepted to cardiac ICU by the fellow under Dr. navarro. We discussed heparingiven the INR where it is, they did not recommend starting a heparin drip 05/22/19 11:12 05/22/19 12:35 A-line placed. Her [facility] is here in the ED with the patient 1230. He is stable for transfer. 05/22/19 15:56 A-line transduced pressure with a map above 80. This was done once that helicopter crew plugged the A-line into their own set up. Patient is received antibiotics a small fluid bolus and he is stable for transfer. - Vital Signs Vital signs: Temp Pulse Resp BP Pulse Ox 103.3 F H 88 28 H 101/60 98 05/22/19 12:00 05/22/19 09:44 05/22/19 12:00 05/22/19 12:00 05/22/19 12:00 - Laboratory Result Diagrams: 05/22/19 09:55 05/22/19 09:55 Laboratory results interpreted by me: 05/22/19 05/22/19 05/22/19 09:55 09:55 09:55 WBC 12.5 H RBC 4.24 L MCV 98 H MCH 33.5 H RDW 14.8 H Plt Count 121 L Seg Neuts % (Manual) 86 H Band Neutrophils % 9 H Lymphocytes % (Manual) 1 L Monocytes % (Manual) 2 L Abs Neuts (Manual) 11.9 H Abs Lymphs (Manual) 0.4 L PT 19.7 H Sodium 133.4 L BUN 30 H Creatinine 1.85 H Est GFR ( Amer) 44 L Est GFR (MDRD) Non-Af 36 L Glucose 156 H Lactic Acid Total Bilirubin 1.6 H Urine Protein Urine Glucose (UA) Urine Blood Ur Leukocyte Esterase 05/22/19 05/22/19 09:55 11:34 WBC RBC MCV MCH RDW Plt Count Seg Neuts % (Manual) Band Neutrophils % Lymphocytes % (Manual) Monocytes % (Manual) Abs Neuts (Manual) Abs Lymphs (Manual) PT Sodium BUN Creatinine Est GFR ( Amer) Est GFR (MDRD) Non-Af Glucose Lactic Acid 2.5 H Total Bilirubin Urine Protein 100 H Urine Glucose (UA) 150 H Urine Blood SMALL H Ur Leukocyte Esterase TRACE H - Diagnostic Test Radiology reviewed: Image reviewed, Reports reviewed - EKG Interpretation by Me EKG shows normal: Sinus rhythm Rate: Normal Rhythm: NSR - Depression When compared to previous EKG there are: No significant change - ST depression unchanged from prior Procedures - Additional Procedures IV insertion Time performed: 12:20 Notes: 05/22/19 12:34 Arterial line left brachial. Ultrasound guidance used. Sterile technique used. 05/22/19 12:35 Over the catheter site abuse. Anchored with tape and sterile dressing. Transduced successfully. No complications. Critical Care Note - Critical Care Note Total time excluding time spent on procedures (mins): 71 Comments: The above patient is critically ill. Not including procedures, but including direct re-evaluations, speaking with patient and/or consultants, interpreting results, and documenting, I spent the total amount of minute listed listed above on critical care time Discharge - Discharge Clinical Impression: Sepsis Qualifiers: Sepsis type: sepsis due to unspecified organism Sepsis acute organ dysfunction status: with acute organ dysfunction Severe sepsis acute organ dysfunction type: encephalopathy Severe sepsis shock status: without septic shock Qualified Code(s): A41.9 - Sepsis, unspecified organism Closed dislocation of left hip Qualifiers: Encounter type: initial encounter Qualified Code(s): S73.005A - Unspecified dislocation of left hip, initial encounter Condition: Critical Disposition: [facility] Referrals: TANA GUERRA MD [Primary Care Provider] - Follow up as needed
[2019-05-22 10:27] LABS: VENOUS BLOOD BASE EXCESS 0.9 mmol/L; VENOUS BLOOD HCO3 27.1 mmol/L (20-32); VENOUS BLOOD PCO2 49.3 mmHg (35-63); VENOUS BLOOD PH 7.36 (7.30-7.42)
[2019-05-22 10:28] LABS: HEMATOCRIT 41.4 % (37.9-51.0); HEMOGLOBIN 14.2 g/dL (13.5-17.0); MEAN CORPUSCULAR HEMOGLOBIN 33.5 pg (27.0-33.4); MEAN CORPUSCULAR HGB CONC 34.4 g/dL (32.0-36.0); MEAN CORPUSCULAR VOLUME 98 fl (80-97); PLATELET COUNT 121 10^3/uL (150-450); RED BLOOD COUNT 4.24 10^6/uL (4.35-5.55); RED CELL DISTRIBUTION WIDTH 14.8 % (11.5-14.0); WHITE BLOOD COUNT 12.5 10^3/uL (4.0-10.5)
[2019-05-22] MEDS ORDERED: CEFTRIAXONE 1 GM/D5W RTU 1 GM/50 ML RTUPB IV ONE (10:36)
[2019-05-22] MEDS ORDERED: VANCOMYCIN HCL INJ 1000 MG VIAL IV ONE (10:37)
[2019-05-22 10:39] LABS: INTERNATIONAL RATION (INR) 1.65; PROTHROMBIN TIME 19.7 SEC (11.4-15.4)
[2019-05-22 10:50] LABS: ALBUMIN 4.1 g/dL (3.5-5.0); ALKALINE PHOSPHATASE 70 U/L (38-126); ANION GAP 8 (5-19); ASPARTATE AMINO TRANSFERASE 32 U/L (17-59); BILIRUBIN,DIRECT 0.1 mg/dL (0.0-0.4); BILIRUBIN,TOTAL 1.6 mg/dL (0.2-1.3); BLOOD UREA NITROGEN 30 mg/dL (7-20); CALCIUM 10.1 mg/dL (8.4-10.2); CARBON DIOXIDE 27 mmol/L (22-30); CHLORIDE 98 mmol/L (98-107); GLUCOSE 156 mg/dL (75-110); POTASSIUM 4.4 mmol/L (3.6-5.0); TOTAL PROTEIN 7.1 g/dL (6.3-8.2)
--- NOTE | 2019-05-22 11:10 | RADIOLOGY REPORT (SQ) ---
EXAM DESCRIPTION: HIP LEFT AP/LATERAL COMPLETED DATE/TIME: 05/22/2019 10:30 am REASON FOR STUDY: sloanjkaty thinners COMPARISON: 05/29/2013 NUMBER OF VIEWS: Two views. TECHNIQUE: AP and frog-leg view of the left hip. LIMITATIONS: None. FINDINGS: MINERALIZATION: Normal. LEFT HIP: Bipolar prosthesis is in place. The prosthesis is dislocated. The ball lies superolateral to the socket. OPPOSITE HIP: Prior total arthroplasty. No acute findings. SOFT TISSUES: No findings. OTHER: No other significant finding. IMPRESSION: Dislocated left hip prosthesis as described. COMMENT: Pelvic fractures are often occult on plain radiographs. If strong clinical suspicion for f racture, recommend CT or MR. TECHNICAL DOCUMENTATION: JOB ID: [id number] [employer]- All Rights Reserved Reading location - IP/workstation name: [email or web address]
[2019-05-22 11:13] LABS: ABSOLUTE LYMPHOCYTES# (MANUAL) 0.4 10^3/uL (0.5-4.7); ABSOLUTE MONOCYTES # (MANUAL) 0.3 10^3/uL (0.1-1.4); BAND NEUTROPHILS % (MANUAL) 9 % (3-5); BASOPHILS % (MANUAL) 0 % (0-2); EOSINOPHILS % (MANUAL) 0 % (0-6); LYMPHOCYTES % (MANUAL) 1 % (13-45); MONOCYTES % (MANUAL) 2 % (3-13); SEGMENTED NEUTROPHILS % (MAN) 86 % (42-78); TOTAL CELLS COUNTED 100
--- NOTE | 2019-05-22 11:13 | RADIOLOGY REPORT (SQ) ---
EXAM DESCRIPTION: CT CERVICAL SPINE WITHOUT; CT HEAD WITHOUT COMPLETED DATE/TIME: 05/22/2019 10:40 am REASON FOR STUDY: kerry salamanca COMPARISON: See below. TECHNIQUE: Axial images acquired through the brain and cervical spine without intravenous contrast. Images reviewed with brain, subdural, lung, soft tissue and bone windows. Reconstructed coronal and sagittal MPR images reviewed. Images stored on PACS. All CT scanners at this facility use dose modulation, iterative reconstruction, and/or weight based d osing when appropriate to reduce radiation dose to as low as reasonably achievable (ALARA). [facility]: Dose Right [facility]: CareDose [facility]: Dose Right [facility]: Teradose 4D [facility]: Smart [employer] RADIATION DOSE: CT Rad equipment meets quality standard of care and radiation dose reduction techniq ues were employed. CTDIvol: 23.8 mGy. DLP: 491 mGy-cm.; CT Rad equipment meets quality standard of ca re and radiation dose reduction techniques were employed. CTDIvol: 53.2 mGy. DLP: 1070 mGy-cm. mGy. LIMITATIONS: None. FINDINGS: Brain: 2015 comparison. No acute findings. No hydrocephalus. Mild small vessel disease . No hemorrhage or mass or shift or fracture. Orbits intact. Clear paranasal sinuses. Cervical spine: 2011 comparison. Minimal anterolisthesis at C3-4, degenerative. Multilevel disc dis ease and facet arthropathy without fracture or bone lesion. Clear lung apices. IMPRESSION: 1. No acute intracranial abnormality. Chronic changes. 2. No acute cervical spine abnormality. Chronic degenerative changes. TECHNICAL DOCUMENTATION: JOB ID: [id number] Quality ID # [id number]: Final reports with documentation of one or more dose reduction techniques (e.g., Au tomated exposure control, adjustment of the mA and/or kV according to patient size, use of iterative reconstruction technique) 2010 [employer]- All Rights Reserved Reading location - IP/workstation name: [email or web address]
--- NOTE | 2019-05-22 11:13 | RADIOLOGY REPORT (SQ) ---
EXAM DESCRIPTION: CT CERVICAL SPINE WITHOUT; CT HEAD WITHOUT COMPLETED DATE/TIME: 05/22/2019 10:40 am REASON FOR STUDY: kerry salamanca COMPARISON: See below. TECHNIQUE: Axial images acquired through the brain and cervical spine without intravenous contrast. Images reviewed with brain, subdural, lung, soft tissue and bone windows. Reconstructed coronal and sagittal MPR images reviewed. Images stored on PACS. All CT scanners at this facility use dose modulation, iterative reconstruction, and/or weight based d osing when appropriate to reduce radiation dose to as low as reasonably achievable (ALARA). [facility]: Dose Right [facility]: CareDose [facility]: Dose Right [facility]: Teradose 4D [facility]: Smart [employer] RADIATION DOSE: CT Rad equipment meets quality standard of care and radiation dose reduction techniq ues were employed. CTDIvol: 23.8 mGy. DLP: 491 mGy-cm.; CT Rad equipment meets quality standard of ca re and radiation dose reduction techniques were employed. CTDIvol: 53.2 mGy. DLP: 1070 mGy-cm. mGy. LIMITATIONS: None. FINDINGS: Brain: 2015 comparison. No acute findings. No hydrocephalus. Mild small vessel disease . No hemorrhage or mass or shift or fracture. Orbits intact. Clear paranasal sinuses. Cervical spine: 2011 comparison. Minimal anterolisthesis at C3-4, degenerative. Multilevel disc dis ease and facet arthropathy without fracture or bone lesion. Clear lung apices. IMPRESSION: 1. No acute intracranial abnormality. Chronic changes. 2. No acute cervical spine abnormality. Chronic degenerative changes. TECHNICAL DOCUMENTATION: JOB ID: [id number] Quality ID # [id number]: Final reports with documentation of one or more dose reduction techniques (e.g., Au tomated exposure control, adjustment of the mA and/or kV according to patient size, use of iterative reconstruction technique) 2010 [employer]- All Rights Reserved Reading location - IP/workstation name: [email or web address]
[2019-05-22 11:17] LABS: ANISOCYTOSIS SLIGHT
[2019-05-22 11:18] LABS: PLATELET COMMENT DECREASED
[2019-05-22] MEDS ORDERED: FENTANYL CITRATE INJ/PF 100 MCG/2 ML AMPUL IV ONE (11:25)
[2019-05-22] MEDS ORDERED: ACETAMINOPHEN 650 MG SUPP.RECT PR ONE (11:54)
[2019-05-22 12:13] LABS: APPEARANCE,URINE CLEAR; BILIRUBIN,URINE NEGATIVE (NEGATIVE); COLOR,URINE YELLOW; GLUCOSE, URINE 150 mg/dL (NEGATIVE); KETONES,URINE NEGATIVE (NEGATIVE); LEUKOCYTE ESTERASE,URINE TRACE (NEGATIVE); NITRITE,URINE NEGATIVE (NEGATIVE); PROTEIN,URINE 100 mg/dL (NEGATIVE); URINE SPECIFIC GRAVITY 1.018; UROBILINOGEN,URINE NEGATIVE mg/dL (<2.0)
[2019-05-22 12:46] VITALS: BP 101/60
--- NOTE | 2019-05-22 20:58 | EKG REPORT ---
SEVERITY:- ABNORMAL ECG - ATRIAL FIBRILLATION VENTRICULAR PREMATURE COMPLEX BORDERLINE IVCD WITH LAD LOW VOLTAGE IN FRONTAL LEADS CONSIDER ANTERIOR INFARCT ABNORMAL T, CONSIDER ISCHEMIA, LATERAL LEADS PROLONGED QT INTERVAL : Confirmed by: Rukhsana Zendejas 22-May-2019 20:58:00
== END 2019-05-22 12:40 | disposition short-term general hospital (02) ==
LOC: ER 09:37
DX: A41.9 Sepsis, unspecified organism (principal); S73.005A Unspecified dislocation of left hip, initial encounter; W19.XXXA Unspecified fall, initial encounter; R41.82 Altered mental status, unspecified; I48.91 Unspecified atrial fibrillation; I50.9 Heart failure, unspecified; I25.10 Atherosclerotic heart disease of native coronary artery without angina pectoris; I25.2 Old myocardial infarction; E78.00 Pure hypercholesterolemia, unspecified; I11.0 Hypertensive heart disease with heart failure; Z87.442 Personal history of urinary calculi; Z95.0 Presence of cardiac pacemaker
CPT/HCPCS: 93005; 99291; 51702; 96375; 96365; 96367; 36415; 87040; 83605; 85025; 85610; 87077; 80053; 81001; 87186; 82803; 87150 ×26; 73502; 70450; 72125; 93010; 36620; A9270; J3010; J3370; J0696